=== PATIENT | male | born 1965 | race Caucasian/White ===

== ENCOUNTER 2017-08-21 14:10 | Inpatient (IN) | payer OTHER ==
[2017-08-21] MEDS ORDERED: Ondansetron 4 MG/2 ML SDV IVPUSH PRN (14:13)
[2017-08-21] MEDS ORDERED: Sodium Chloride 0.9% 2.5 ML Syringe FLUSH PRN (14:18)
[2017-08-21] MEDS ORDERED: Desflurane 240 ML Bottle ONE (14:43)
[2017-08-21] MEDS ORDERED: Ondansetron 4 MG/2 ML SDV ONE (14:48)
[2017-08-21] MEDS ORDERED: Midazolam 1 MG/ML 2 ML SDV ONE (14:48)
[2017-08-21] MEDS ORDERED: fentaNYL 250 MCG/5 ML SDV ONE (14:48)
[2017-08-21] MEDS ORDERED: Lidocaine 2% 5 ML SDV ONE (14:48)
[2017-08-21] MEDS ORDERED: Propofol 200 MG/20 ML SDV ONE (14:48)
[2017-08-21] MEDS ORDERED: Bupivacaine 0.5% 30 ML SDV ONE (14:55)
[2017-08-21] MEDS ORDERED: Lidocaine 1% 20 ML MDV ONE (14:55)
[2017-08-21] MEDS ORDERED: ceFAZolin 1 GM Vial ONE (14:55)
[2017-08-21 14:58] LABS: CHLORIDE,CL 102 mmol/L (98-110); SODIUM,NA 137 mmol/L (136-146)
--- NOTE | 2017-08-21 15:01 | PCM.PREANE ---
Preanesthetic Assessment - Anesthesia/Transfusion/Family Hx Anesthesia History: No Prior Anesthesia Family History of Anesthesia Reaction: No Transfusion History: No Prior Transfusion(s) - Review of Systems General: No Symptoms Pulmonary: No Symptoms Cardiovascular: Other (Pt does state he gets short of breath climbing a flight of stairs) Gastrointestinal: No Symptoms Neurological: No Symptoms Other: Reports: None - Physical Assessment NPO Status Date: 08/21/17 NPO Status Time: 06:30 ASA Class: 3E Mental Status: Alert & Oriented x3 Airway Class: Mallampati = 2 Dentition: Reports: Normal Dentition Thyro-Mental Finger Breadths: 3 Mouth Opening Finger Breadths: 4 ROM/Head Extension: Full Lungs: Clear to Auscultation, Normal Respiratory Effort Cardiovascular: Regular Rate, Regular Rhythm - Lab Values: Laboratory Last Values WBC 11.76 K/uL (4.0-11.0) H 08/21/17 14:24 RBC 4.97 M/uL (4.50-5.90) 08/21/17 14:24 Hgb 13.9 g/dL (13.0-17.0) 08/21/17 14:24 Hct 40.2 % (38.0-50.0) 08/21/17 14:24 MCV 80.9 fL (80.0-98.0) 08/21/17 14:24 MCH 28.0 pg (27.0-32.0) 08/21/17 14:24 MCHC 34.6 g/dL (31.0-37.0) 08/21/17 14:24 RDW Std Deviation 38.1 fl (28.0-62.0) 08/21/17 14:24 RDW Coeff of Analy 13 % (11.0-15.0) 08/21/17 14:24 Plt Count 211 K/uL (150-400) 08/21/17 14:24 MPV 9.60 fL (7.40-12.00) 08/21/17 14:24 Neut % (Auto) 74.8 % (48.0-80.0) 08/21/17 14:24 Lymph % (Auto) 11.6 % (16.0-40.0) L 08/21/17 14:24 Harlan % (Auto) 7.8 % (0.0-15.0) 08/21/17 14:24 Eos % (Auto) 5.4 % (0.0-7.0) 08/21/17 14:24 Baso % (Auto) 0.4 % (0.0-1.5) 08/21/17 14:24 Neut # (Auto) 8.8 K/uL (1.4-5.7) H 08/21/17 14:24 Lymph # (Auto) 1.4 K/uL (0.6-2.4) 08/21/17 14:24 Harlan # (Auto) 0.9 K/uL (0.0-0.8) H 08/21/17 14:24 Eos # (Auto) 0.6 K/uL (0.0-0.7) 08/21/17 14:24 Baso # (Auto) 0.1 K/uL (0.0-0.1) 08/21/17 14:24 Nucleated RBC % 0.0 /100WBC 08/21/17 14:24 Nucleated RBCs # 0 K/uL 08/21/17 14:24 INR 1.04 (0.86-1.11) 08/21/17 14:24 Hemoglobin A1c 11.1 % (0.0-6.0) H 08/21/17 14:26 - Blood Blood Available: No Product(s) Available: None - Anesthesia Plan Free Text/Narrative:: GA with LMA vs ET Awaiting CMP and EKG to still be completed - Acknowledgements Anesthesia Type Planned: General Anesthesia Pt an Appropriate Candidate for the Planned Anesthesia: Yes Alternatives and Risks of Anesthesia Discussed w Pt/Guardian: Yes Pt/Guardian Understands and Agrees with Anesthesia Plan: Yes PreAnesthesia Questionnaire Cardiovascular History: Reports: Hypertension, SOB on Exertion Gastrointestinal History: Reports: GERD (pt states occasionally with certain foods, but denies any problems currently) Endocrine/Metabolic History: Reports: Diabetes, Type II (states BG runs 250-350 and Hgb A1C=11.1) Dermatologic History: Reports: Other (See Below) (Diabetic Ulcer to L Foot) - SUBSTANCE USE Tobacco Use Within Last Twelve Months: No - CURRENT (IN HOUSE) MEDS Current Meds: Current Medications Piperacillin Sod/Tazobactam (Sod 4.5 gm/ Sodium Chloride) 100 mls @ 100 mls/hr IV Q6H LIANA Ondansetron HCl (Zofran) 4 mg IVPUSH Q4H PRN PRN Reason: Nausea Sodium Chloride (Saline Flush) 2.5 ml FLUSH ASDIRECTED PRN PRN Reason: Keep Vein Open Vancomycin HCl (Pharmacy To Dose - Vancomycin) 1 dose .XX ONETIME ONE Stop: 08/21/17 14:19 Discontinued Medications Desflurane (Suprane) Confirm Administered Dose 240 ml .ROUTE .STK-MED ONE Stop: 08/21/17 14:44 Fentanyl (Sublimaze) Confirm Administered Dose 250 mcg .ROUTE .STK-MED ONE Stop: 08/21/17 14:49 Lidocaine (Xylocaine-Mpf 2%) Confirm Administered Dose 5 ml .ROUTE .STK-MED ONE Stop: 08/21/17 14:49 Midazolam HCl (Versed 1 Mg/Ml) Confirm Administered Dose 2 mg .ROUTE .STK-MED ONE Stop: 08/21/17 14:49 Ondansetron HCl (Zofran) Confirm Administered Dose 4 mg .ROUTE .STK-MED ONE Stop: 08/21/17 14:49 Propofol (Diprivan 20 Ml) Confirm Administered Dose 200 mg .ROUTE .STK-MED ONE Stop: 08/21/17 14:49
[2017-08-21] MEDS: Piperacillin/Tazobactam 4.5 GM in Sodium Chloride 0.9% 100 ML IV SCH ×2 (15:03→20:44)
--- NOTE | 2017-08-21 15:11 | CR ---
EXAMINATION: Portable chest radiograph. HISTORY: Preoperative. FINDINGS: The trachea is midline. The cardiomediastinal silhouette is within normal limits. No pulmonary infilt rates, effusions or pneumothorax. Osseous structures appear unremarkable. IMPRESSION: No acute cardiopulmonary process.
--- NOTE | 2017-08-21 15:25 | PCM.HP ---
H&P History of Present Illness - General Date of Service: 08/21/17 Admit Problem/Dx: Admission Diagnosis/Problem Admission Diagnosis/Problem Diabetic foot ulcer Source of Information: Patient History Limitations: Reports: No Limitations - History of Present Illness Initial Comments - Free Text/Narative: This 52 year old male with pmh of uncontrolled DM, L diabetic foot ulcer, HTN and SOB on exertion was admitted directly from Dr. Gutierrez's clinic. He was recently admitted in [facility] for this ulcer, with fevers. He reports 8 months ago a blood blister wsa noted on the plantar surface of his l foot, this popped and healed slightly but never went away. He didn't seek treatment. 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 The blister popped and then the next day he noticed increased swelling, pain and fevers at home. He reports his normal blood sugars at 250-300s, he checks them maybe once a week. He has been diabetic for many years, started as diet controlled and has progressively needed more medication help and was recently started on Insulin from [employer] in [place]. He reports diet doesn't follow ADA standard. He has no hx of IL or stenting. No COPD or asthma. He does report some SOB with exertion such as walking up stairs. Leukocytosis noted, 11,760 on admission. BMP WNL except for glucose 267 and A1c 11.1. CXR negative for infiltrates and no cardiomegaly noted. EKG SR with no ectopy or ST segment changes. - Related Data Allergies/Adverse Reactions: Allergies Allergy/AdvReac Type Severity Reaction Status Date / Time No Known Allergies Allergy Verified 08/21/17 15:39 Past Medical History Cardiovascular History: Reports: Hypertension, SOB on Exertion. Denies: Afib, Blood Clots/VTE/DVT, CAD, Heart Failure, IL, Stents Respiratory History: Denies: Asthma, COPD, PE, Sleep Apnea Gastrointestinal History: Reports: GERD Genitourinary History: Reports: None. Denies: Acute Renal Failure, BPH, Chronic Renal Insuffiency Musculoskeletal History: Reports: None Neurological History: Reports: Neuropathy, Diabetic. Denies: CVA, Headaches, Chronic Endocrine/Metabolic History: Reports: Diabetes, Type II (states BG runs 250-350 and Hgb A1C=11.1), Obesity/BMI 30+ Hematologic History: Reports: None. Denies: Anticoagulation Therapy Dermatologic History: Reports: Other (See Below) (Diabetic Ulcer to L Foot) Social & Family History - Tobacco Use Smoking Status *Q: Never Smoker Tobacco Use Within Last Twelve Months: No - Alcohol Use Alcohol Use History: No - Recreational Drug Use Recreational Drug Use: No - Living Situation & Occupation Occupation: Employed H&P Review of Systems - Review of Systems: Review Of Systems: See Below General: Reports: Fever (during admission in [place], highest 102 F), Chills , Malaise HEENT: Reports: No Symptoms. Denies: Contact Lenses, Headaches, Sore Throat, Vertigo Pulmonary: Reports: No Symptoms. Denies: Shortness of Breath, Wheezing, Cough, Sputum Cardiovascular: Reports: No Symptoms. Denies: Chest Pain, Palpitations, Edema Gastrointestinal: Reports: No Symptoms. Denies: Abdominal Pain, Black Stool, Bloody Stool, Nausea, Vomiting Genitourinary: Reports: No Symptoms. Denies: Frequency, Burning Skin: Reports: Wound (L medial foot) Psychiatric: Reports: No Symptoms. Denies: Confusion Neurological: Reports: No Symptoms. Denies: Confusion Hematologic/Lymphatic: Reports: No Symptoms. Denies: Anemia, Easy Bleeding Exam - Exam Exam: See Below - Exam General: Alert, Oriented, Cooperative HEENT: Conjunctiva Clear, Mucosa Moist & [place], Posterior Pharynx Clear, Pupils Reactive Lungs: Clear to Auscultation, Normal Respiratory Effort Cardiovascular: Regular Rate, Regular Rhythm GI/Abdominal Exam: Normal Bowel Sounds, Soft, Non-Tender, No Organomegaly, No Distention, No Abnormal Bruit, No Mass, Pelvis Stable Back Exam: Normal Inspection, Full Range of Motion, NT Extremities: Normal Range of Motion, Pedal Edema (+1 pitting to L foot and ankle ), Increased Warmth Skin: Wound (noted medial to L MTP joint, approximately 8x8 cm with purulent drainage noted to open region with some noted necrotic tissue with surrounding maceration, erythema and warmth. No pain, foot is numb from neuropathy. ) Neuro Extensive - Mental Status: Alert, Oriented x3, Normal Mood/Affect, Normal Cognition Neuro Extensive - Motor, Sensory, Reflexes: CN II-XII Intact Psychiatric: Alert, Normal Affect, Normal Mood - Patient Data Lab Results Last 24 hrs: Laboratory Results - last 24 hr 08/21/17 08/21/17 08/21/17 Range/Units 14:24 14:24 14:24 WBC 11.76 H (4.0-11.0) K/uL RBC 4.97 (4.50-5.90) M/uL Hgb 13.9 (13.0-17.0) g/dL Hct 40.2 (38.0-50.0) % MCV 80.9 (80.0-98.0) fL MCH 28.0 (27.0-32.0) pg MCHC 34.6 (31.0-37.0) g/dL RDW Std Deviation 38.1 (28.0-62.0) fl RDW Coeff of Analy 13 (11.0-15.0) % Plt Count 211 (150-400) K/uL MPV 9.60 (7.40-12.00) fL Neut % (Auto) 74.8 (48.0-80.0) % Lymph % (Auto) 11.6 L (16.0-40.0) % [place] % (Auto) 7.8 (0.0-15.0) % Eos % (Auto) 5.4 (0.0-7.0) % Baso % (Auto) 0.4 (0.0-1.5) % Neut # (Auto) 8.8 H (1.4-5.7) K/uL Lymph # (Auto) 1.4 (0.6-2.4) K/uL [place] # (Auto) 0.9 H (0.0-0.8) K/uL Eos # (Auto) 0.6 (0.0-0.7) K/uL Baso # (Auto) 0.1 (0.0-0.1) K/uL Nucleated RBC % 0.0 /100WBC Nucleated RBCs # 0 K/uL INR 1.04 (0.86-1.11) Sodium 137 (136-146) mmol/L Potassium 4.4 (3.5-5.1) mmol/L Chloride 102 (98-110) mmol/L Carbon Dioxide 26 (21-31) mmol/L BUN 10 (6.0-23.0) mg/dL Creatinine 0.9 (0.6-1.5) mg/dL Est Cr Clr Drug Dosing TNP Estimated GFR (MDRD) > 60.0 ml/min Glucose 267 H (60-110) mg/dL Hemoglobin A1c (0.0-6.0) % Calcium 9.4 (8.8-10.8) mg/dL Total Bilirubin 0.7 (0.1-1.5) mg/dL AST 9 (5-40) IU/L ALT 9 (8-54) IU/L Alkaline Phosphatase 77 (40-150) Total Protein 6.7 (6.0-8.0) g/dL Albumin 3.8 (3.5-5.0) g/dL Globulin 2.9 (2.0-3.5) g/dL Albumin/Globulin Ratio 1.3 (1.3-2.8) 08/21/17 Range/Units 14:26 WBC (4.0-11.0) K/uL RBC (4.50-5.90) M/uL Hgb (13.0-17.0) g/dL Hct (38.0-50.0) % MCV (80.0-98.0) fL MCH (27.0-32.0) pg MCHC (31.0-37.0) g/dL RDW Std Deviation (28.0-62.0) fl RDW Coeff of Analy (11.0-15.0) % Plt Count (150-400) K/uL MPV (7.40-12.00) fL Neut % (Auto) (48.0-80.0) % Lymph % (Auto) (16.0-40.0) % [place] % (Auto) (0.0-15.0) % Eos % (Auto) (0.0-7.0) % Baso % (Auto) (0.0-1.5) % Neut # (Auto) (1.4-5.7) K/uL Lymph # (Auto) (0.6-2.4) K/uL [place] # (Auto) (0.0-0.8) K/uL Eos # (Auto) (0.0-0.7) K/uL Baso # (Auto) (0.0-0.1) K/uL Nucleated RBC % /100WBC Nucleated RBCs # K/uL INR (0.86-1.11) Sodium (136-146) mmol/L Potassium (3.5-5.1) mmol/L Chloride (98-110) mmol/L Carbon Dioxide (21-31) mmol/L BUN (6.0-23.0) mg/dL Creatinine (0.6-1.5) mg/dL Est Cr Clr Drug Dosing Estimated GFR (MDRD) ml/min Glucose (60-110) mg/dL Hemoglobin A1c 11.1 H (0.0-6.0) % Calcium (8.8-10.8) mg/dL Total Bilirubin (0.1-1.5) mg/dL AST (5-40) IU/L ALT (8-54) IU/L Alkaline Phosphatase (40-150) Total Protein (6.0-8.0) g/dL Albumin (3.5-5.0) g/dL Globulin (2.0-3.5) g/dL Albumin/Globulin Ratio (1.3-2.8) Result Diagrams: 08/21/17 14:24 08/21/17 14:24 EKG INTERPRETATION EKG Date: 08/21/17 Rhythm: NSR Bynum: Normal P-Wave: Present QRS: Normal ST-T: Normal QT: Normal *Q Meaningful Use (ADM) - VTE *Q VTE Criteria *Q: - Stroke *Q Stroke Criteria *Q: - AMI *Q AMI Criteria *Q: - Problem List (1) Diabetic foot ulcer SNOMED Code(s): 768516033 ICD Code: E11.621 - TYPE 2 DIABETES MELLITUS WITH FOOT ULCER; L97.509 - NON- PRESSURE CHRONIC ULCER OTH PRT UNSP FOOT W UNSP SEVERITY Status: Acute Current Visit: Yes Qualifiers: Diabetic foot ulcer location: midfoot Diabetes mellitus type: type 2 Laterality: left Non-pressure ulcer stage: with bone involvement without evidence of necrosis Qualified Code(s): E11.621 - Type 2 diabetes mellitus with foot ulcer; L97.426 - Non-pressure chronic ulcer of left heel and midfoot with bone involvement without evidence of necrosis; L97.426 - Non-pressure chronic ulcer of left heel and midfoot with bone involvement without evidence of necrosis (2) Uncontrolled type 2 diabetes mellitus with skin complication SNOMED Code(s): 72688423 ICD Code: E11.628 - TYPE 2 DIABETES MELLITUS WITH OTHER SKIN COMPLICATIONS; E11.65 - TYPE 2 DIABETES MELLITUS WITH HYPERGLYCEMIA Status: Acute Current Visit: Yes Qualifiers: Diabetes mellitus complication detail: with foot ulcer 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: with nursing home use Qualified Code(s): E11.621 - Type 2 diabetes mellitus with foot ulcer; E11.65 - Type 2 diabetes mellitus with hyperglycemia; E11.65 - Type 2 diabetes mellitus with hyperglycemia; E11.65 - Type 2 diabetes mellitus with hyperglycemia; E11.65 - Type 2 diabetes mellitus with hyperglycemia; L97.509 - Non-pressure chronic ulcer of other part of unspecified foot with unspecified severity; L97.509 - Non-pressure chronic ulcer of other part of unspecified foot with unspecified severity; L97.509 - Non -pressure chronic ulcer of other part of unspecified foot with unspecified severity; L97.509 - Non-pressure chronic ulcer of other part of unspecified foot with unspecified severity; Z79.4 - senior care (current) use of insulin; Z79.4 - senior care (current) use of insulin; Z79.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; Z79.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 (3) HTN (hypertension) SNOMED Code(s): 46961424 ICD Code: I10 - ESSENTIAL (PRIMARY) HYPERTENSION Status: Chronic Current Visit: Yes Qualifiers: Hypertension type: essential hypertension Qualified Code(s): I10 - Essential (primary) hypertension (4) Obesity (BMI 30-39.9) SNOMED Code(s): 398489646 ICD Code: E66.9 - OBESITY, UNSPECIFIED Status: Chronic Current Visit: Yes Problem List Initiated/Reviewed/Updated: Yes Orders Last 24hrs: Active Orders 24 hr Category Date Time Status Patient Status [ADT] Routine ADT 08/21/17 14:13 Active Intake and Output [RC] Q12H Care 08/21/17 14:15 Active Notify Provider Consults [RC] ASDIRECTED Care 08/21/17 14:16 Active VTE/DVT Education [RC] PER UNIT ROUTINE Care 08/21/17 14:13 Active Vital Signs [RC] Q4H Care 08/21/17 14:13 Active Consult to Physician [CONS] Routine Cons 08/21/17 14:13 Active Nothing per Oral Now Diet [DIET] Diet 08/21/17 Dinner Active CULTURE BLOOD [BC] Stat Lab 08/21/17 15:19 Ordered CULTURE BLOOD [BC] Stat Lab 08/21/17 15:19 Ordered VANCOMYCIN TROUGH [CHEM] Routine Lab 08/22/17 15:30 Ordered Ondansetron [Zofran] Med 08/21/17 14:13 Active 4 mg IVPUSH Q4H PRN Piperacillin/Tazobactam [Piperacil-Tazobact] 4.5 gm Med 08/21/17 14:30 Active Sodium Chloride 0.9% [Normal Saline] 100 ml IV Q6H Sodium Chloride 0.9% [Saline Flush] Med 08/21/17 14:18 Active 2.5 ml FLUSH ASDIRECTED PRN Vancomycin 2 gm Med 08/21/17 16:00 Active Sodium Chloride 0.9% [Normal Saline] 500 ml IV Q12H Blood Culture x2 Reflex Set [OM.PC] Stat Oth 08/21/17 15:18 Ordered Saline Lock Insert [OM.PC] Routine Oth 08/21/17 14:18 Ordered Resuscitation Status Routine Resus Stat 08/21/17 14:13 Ordered Medication Orders Piperacillin Sod/Tazobactam (Sod 4.5 gm/ Sodium Chloride) 100 mls @ 100 mls/hr IV Q6H LIANA Last Admin: 08/21/17 15:03 Dose: 100 mls/hr Vancomycin HCl 2 gm/ Sodium (Chloride) 500 mls @ 250 mls/hr IV Q12H LIANA Ondansetron HCl (Zofran) 4 mg IVPUSH Q4H PRN PRN Reason: Nausea Sodium Chloride (Saline Flush) 2.5 ml FLUSH ASDIRECTED PRN PRN Reason: Keep Vein Open Assessment/Plan Comment:: This 52 year old male admitted with suspected Osteomyelitis from infected L diabetic foot ulcer. 1. Suspected Osteomyelitis with infected L diabetic foot ulcer: Will obtain BC due to fevers. Vancomycin and Zosyn IV for now. Dr. Gutierrez to take to OR this evening. 2. DM type 2: Very uncontrolled. A1c 11.1 Needs reeducation on diet and medication regimen. Will consult DM educator. Hold Metformin. Novolog SSI with meals and Levemir at bedtime. 3. HTN: Continue Norvasc VTE prophylaxis: Will recommended post-operatively. Will speak with Dr. Gutierrez regarding safe starting point. DIspo: 3-5 days pending improvement
[2017-08-21] MEDS ORDERED: Vancomycin 2 GM in Sodium Chloride 0.9% 500 ML IV SCH (16:00)
[2017-08-21] MEDS ORDERED: Insulin Aspart 100 Units/ML 3 ML Pen SUBCUT STA (16:14)
[2017-08-21] MEDS ORDERED: Insulin Aspart 100 Units/ML 3 ML Pen SUBCUT SCH (17:00)
[2017-08-21] MEDS: Sodium Chloride 0.9% 1,000 ML IV SCH (17:09)
[2017-08-21] MEDS: Vancomycin 2 GM in Sodium Chloride 0.9% 500 ML IV SCH (17:09)
[2017-08-21] MEDS ORDERED: Phenylephrine/Normal Saline 100 MCG/ML 10 ML Syringe ONE (18:16)
[2017-08-21] MEDS ORDERED: fentaNYL 100 MCG/2 ML SDV IVPUSH PRN (18:17)
--- NOTE | 2017-08-21 19:02 | PCM.CONS ---
H&P History of Present Illness - General Date of Service: 08/21/17 Admit Problem/Dx: Admission Diagnosis/Problem Admission Diagnosis/Problem Diabetic foot ulcer Source of Information: Patient - History of Present Illness Onset of Symptoms: Reports: Gradual, Unknown/Unsure Duration of Symptoms: Reports: Chronic Location: Reports: Lower Extremity, Left Severity: Severe Associated Symptoms: Reports: Fever/Chills - Related Data Allergies/Adverse Reactions: Allergies Allergy/AdvReac Type Severity Reaction Status Date / Time No Known Allergies Allergy Verified 08/21/17 15:39 Home Medications: Home Meds amLODIPine [Norvasc] 10 mg PO DAILY 08/21/17 [History] metFORMIN [Glucophage XR] 1,000 mg PO BIDMEALS 08/21/17 [History] Past Medical History HEENT History: Reports: Other (See Below) Other HEENT History: uses reading glasses Cardiovascular History: Reports: Hypertension, SOB on Exertion. Denies: Afib, Blood Clots/VTE/DVT, CAD, Heart Failure, [place], Stents Respiratory History: Denies: Asthma, COPD, PE, Sleep Apnea Gastrointestinal History: Reports: GERD Genitourinary History: Reports: None. Denies: Acute Renal Failure, BPH, Chronic Renal Insuffiency Musculoskeletal History: Reports: None Neurological History: Reports: Neuropathy, Diabetic. Denies: CVA, Headaches, Chronic Endocrine/Metabolic History: Reports: Diabetes, Type II (states BG runs 250-350 and Hgb A1C=11.1), Obesity/BMI 30+ Hematologic History: Reports: None. Denies: Anticoagulation Therapy Dermatologic History: Reports: Other (See Below) (Diabetic Ulcer to L Foot) Other Dermatologic History: diabetic foot ulcer to left big toe - Infectious Disease History Infectious Disease History: Reports: Chicken Pox - Past Surgical History Musculoskeletal Surgical History: Reports: None Social & Family History - Family History Family Medical History: Noncontributory - Tobacco Use Smoking Status *Q: Never Smoker Second Hand Smoke Exposure: Yes - Caffeine Use Caffeine Use: Reports: Coffee - Recreational Drug Use Recreational Drug Use: No - Living Situation & Occupation Occupation: Employed H&P Review of Systems - Review of Systems: Review Of Systems: See Below Exam - Exam Exam: See Below - Vital Signs Vital Signs: Last Vital Signs Temp 37.2 C 08/21/17 17:30 Pulse 83 08/21/17 17:30 Resp 16 08/21/17 17:30 BP 166/78 H 08/21/17 17:30 Pulse Ox 95 08/21/17 17:30 Weight: 122.515 kg - Exam Peripheral Pulses: 0: Posterior Tibial (L), Dorsalis Pedis (L), 1+: Posterior Tibial (R), Dorsalis Pedis (R) Physical Exam Comments:: in the office earlier today, I was able to probe a tunnel from the medial ulcer to the plantar ulcer patient has quite severe cellulitis of the left foot related to the ulcer which is borderline stage 4 on the dorsomedial aspect of the first metatarsal and probes oblquely to the plantar, sub first metatarsal head area. - Patient Data Lab Results Last 24 hrs: Laboratory Results - last 24 hr 08/21/17 08/21/17 08/21/17 Range/Units 14:24 14:24 14:24 WBC 11.76 H (4.0-11.0) K/uL RBC 4.97 (4.50-5.90) M/uL Hgb 13.9 (13.0-17.0) g/dL Hct 40.2 (38.0-50.0) % MCV 80.9 (80.0-98.0) fL MCH 28.0 (27.0-32.0) pg MCHC 34.6 (31.0-37.0) g/dL RDW Std Deviation 38.1 (28.0-62.0) fl RDW Coeff of Analy 13 (11.0-15.0) % Plt Count 211 (150-400) K/uL MPV 9.60 (7.40-12.00) fL Neut % (Auto) 74.8 (48.0-80.0) % Lymph % (Auto) 11.6 L (16.0-40.0) % [place] % (Auto) 7.8 (0.0-15.0) % Eos % (Auto) 5.4 (0.0-7.0) % Baso % (Auto) 0.4 (0.0-1.5) % Neut # (Auto) 8.8 H (1.4-5.7) K/uL Lymph # (Auto) 1.4 (0.6-2.4) K/uL Stanley # (Auto) 0.9 H (0.0-0.8) K/uL Eos # (Auto) 0.6 (0.0-0.7) K/uL Baso # (Auto) 0.1 (0.0-0.1) K/uL Nucleated RBC % 0.0 /100WBC Nucleated RBCs # 0 K/uL INR 1.04 (0.86-1.11) Sodium 137 (136-146) mmol/L Potassium 4.4 (3.5-5.1) mmol/L Chloride 102 (98-110) mmol/L Carbon Dioxide 26 (21-31) mmol/L BUN 10 (6.0-23.0) mg/dL Creatinine 0.9 (0.6-1.5) mg/dL Est Cr Clr Drug Dosing TNP Estimated GFR (MDRD) > 60.0 ml/min Glucose 267 H (60-110) mg/dL POC Glucose (60-110) mg/dL Hemoglobin A1c (0.0-6.0) % Calcium 9.4 (8.8-10.8) mg/dL Total Bilirubin 0.7 (0.1-1.5) mg/dL AST 9 (5-40) IU/L ALT 9 (8-54) IU/L Alkaline Phosphatase 77 (40-150) Total Protein 6.7 (6.0-8.0) g/dL Albumin 3.8 (3.5-5.0) g/dL Globulin 2.9 (2.0-3.5) g/dL Albumin/Globulin Ratio 1.3 (1.3-2.8) 08/21/17 08/21/17 Range/Units 14:26 15:52 WBC (4.0-11.0) K/uL RBC (4.50-5.90) M/uL Hgb (13.0-17.0) g/dL Hct (38.0-50.0) % MCV (80.0-98.0) fL MCH (27.0-32.0) pg MCHC (31.0-37.0) g/dL RDW Std Deviation (28.0-62.0) fl RDW Coeff of Analy (11.0-15.0) % Plt Count (150-400) K/uL MPV (7.40-12.00) fL Neut % (Auto) (48.0-80.0) % Lymph % (Auto) (16.0-40.0) % [place] % (Auto) (0.0-15.0) % Eos % (Auto) (0.0-7.0) % Baso % (Auto) (0.0-1.5) % Neut # (Auto) (1.4-5.7) K/uL Lymph # (Auto) (0.6-2.4) K/uL Stanley # (Auto) (0.0-0.8) K/uL Eos # (Auto) (0.0-0.7) K/uL Baso # (Auto) (0.0-0.1) K/uL Nucleated RBC % /100WBC Nucleated RBCs # K/uL INR (0.86-1.11) Sodium (136-146) mmol/L Potassium (3.5-5.1) mmol/L Chloride (98-110) mmol/L Carbon Dioxide (21-31) mmol/L BUN (6.0-23.0) mg/dL Creatinine (0.6-1.5) mg/dL Est Cr Clr Drug Dosing Estimated GFR (MDRD) ml/min Glucose (60-110) mg/dL POC Glucose 226 H (60-110) mg/dL Hemoglobin A1c 11.1 H (0.0-6.0) % Calcium (8.8-10.8) mg/dL Total Bilirubin (0.1-1.5) mg/dL AST (5-40) IU/L ALT (8-54) IU/L Alkaline Phosphatase (40-150) Total Protein (6.0-8.0) g/dL Albumin (3.5-5.0) g/dL Globulin (2.0-3.5) g/dL Albumin/Globulin Ratio (1.3-2.8) Result Diagrams: 08/21/17 14:24 08/21/17 14:24 Consult PN Assessment/Plan (1) Diabetic foot ulcer SNOMED Code(s): 457986289 Code(s): E11.621 - TYPE 2 DIABETES MELLITUS WITH FOOT ULCER; L97.509 - NON- PRESSURE CHRONIC ULCER OTH PRT UNSP FOOT W UNSP SEVERITY Current Visit: Yes Qualifiers: Diabetic foot ulcer location: midfoot Diabetes mellitus type: type 2 Laterality: left Non-pressure ulcer stage: with bone involvement without evidence of necrosis Qualified Code(s): E11.621 - Type 2 diabetes mellitus with foot ulcer; L97.426 - Non-pressure chronic ulcer of left heel and midfoot with bone involvement without evidence of necrosis; L97.426 - Non-pressure chronic ulcer of left heel and midfoot with bone involvement without evidence of necrosis Problem List Initiated/Reviewed/Updated: Yes My Orders Last 24 Hours: My Active Orders 08/21/17 18:24 CULTURE ANAEROBIC [RM] Routine GRAM STAIN [RM] Routine 08/21/17 18:26 CULTURE WOUND [RM] Routine Plan: proceed with emergent incision and drainage tonight in OR, then maintain IV abx pending improvement in cellulitis and culture results (culture being taken in OR )
--- NOTE | 2017-08-21 19:15 | PCM.OPNOTE ---
- General Post-Op/Procedure Note Date of Surgery/Procedure: 08/21/17 Operative Procedure(s): incision and drainage with debridement left foot diabetic ulcer Findings: consistent with diagnosis Pre Op Diagnosis: diabetic foot ulcer left foot Post-Op Diagnosis: diabetic foot ulcer left foot Anesthesia Technique: General LMA Primary Surgeon: Wilmer Gutierrez Anesthesia Provider: Mimi Horvath Pathology: none EBL in mLs: 40 Complications: none Condition: Good Free Text/Narrative:: Intake & Output 08/21/17 08/21/17 08/21/17 06:59 14:59 22:59 Intake Total 550 Output Total 500 Balance 50 incisions partially closed with 4-0 vicryl and 4-0 prolene suture 3 liters of NSS pulse lavage utilized to flush ulcer site
--- NOTE | 2017-08-21 19:16 | PCM.POSTAN ---
POST ANESTHESIA ASSESSMENT - MENTAL STATUS Mental Status: Alert, Oriented - VITAL SIGNS Pulse Rate: 94 SaO2: 92 Resp Rate: 13 - RESPIRATORY Respiratory Status: Respiratory Rate WNL, Airway Patent, O2 Saturation Stable, Supplemental Oxygen - CARDIOVASCULAR CV Status: Pulse Rate WNL, Blood Pressure Stable - GASTROINTESTINAL GI Status: No Symptoms - PAIN Pain Score: 0 - POST OP HYDRATION Hydration Status: Adequate & Stable - OBSERVATIONS Free Text/Narrative:: Pt stable for discharge to phase II recovery on Med/Surg. No complaints at this time.
--- NOTE | 2017-08-21 19:31 | PCM48HPAN ---
Post Anesthesia Note - EVALUATION WITHIN 48HRS OF ANESTHETIC Vital Signs in Normal Range: Yes Patient Participated in Evaluation: Yes Respiratory Function Stable: Yes Airway Patent: Yes Cardiovascular Function Stable: Yes Hydration Status Stable: Yes Pain Control Satisfactory: Yes Nausea and Vomiting Control Satisfactory: Yes Mental Status Recovered: Yes - COMMENTS/OBSERVATIONS Free Text/Narrative:: Pt has no complaints. VSS. No apparent anesthesia complications.
[2017-08-21] MEDS ORDERED: Insulin Detemir 100 Units/ML 3 ML Pen SUBCUT SCH (21:00)
--- NOTE | 2017-08-21 23:14 | OR ---
SURGEON: Wilmer Gutierrez DPM DATE OF PROCEDURE: 08/21/2017 PREOPERATIVE DIAGNOSIS: Diabetic ulcer, left foot. PROCEDURE: Incision and drainage with debridement as necessary of diabetic ulcer, left foot. CONSENT: Signed and in the chart. ANESTHESIA: General. HEMOSTASIS: An above ankle pneumatic tourniquet was placed, however, it was not inflated as it was deemed to be unnecessary during the procedure. MATERIALS: 4-0 Vicryl, 4-0 Prolene. INJECTABLES: None. PATHOLOGY: None. JUSTIFICATION FOR PROCEDURE: The patient is an uncontrolled diabetic who was admitted to [facility] in [place], [place], 2 days ago and I was consulted by phone regarding this patient yesterday and agreed to see the patient in my office following an MRI that was scheduled for him. Upon seeing the patient today in my office, I informed the patient that a significant incision and drainage of his left foot is necessary as he has an ulcer which probes either to bone or very close to bone and probes from one ulcer site to another within the left foot. The patient understands and agrees to proceed to [facility]. I contacted Dr. Schultz, the hospitalist and he agreed to admit the patient, and I then scheduled operative room treatment for this evening. DESCRIPTION OF PROCEDURE: The patient was brought into the operating room, placed on the operating table in a supine position, at which time an aseptic scrub and drape was performed about the patient's left lower extremity. An above ankle pneumatic tourniquet was placed above the malleoli on the left lower extremity; however, it was not utilized as it was not necessary during the procedure. An incision was made over the dorsal medial ulcer site and extended to allow for probing for pockets of purulence. The same was done on the plantar ulcer. [place] elevator was used to probe the tunnel between the two ulcers. The ulcers were located on the dorsal medial aspect of the first metatarsal head and metatarsophalangeal joint of the left foot and probed obliquely and plantarly to the plantar sub-first metatarsal head area of the left foot. The wound was debrided of all necrotic tissue and exsanguinated using manual pressure, and a small amount of purulence was noted to come from the ulcers. At that point, pulse lavage was used intermittently throughout the procedure to flush and then reexamine the site and further exsanguinate until no purulence was noted with repeated exsanguination. Further pulse lavage was then done completing a total of 3 L of normal sterile saline pulse lavage. Cultures were taken at the conclusion of the procedure, and the patient will be readmitted to his room and continue with his IV antibiotics, both vancomycin and Zosyn. I will follow the patient while in-house. Anticipate the patient will be in-house a minimum of two days, possibly longer pending resolution of his left lower extremity cellulitis and better control of his blood sugar. The patient tolerated the procedure and the anesthesia well without any complications noted or reported, and following the procedure, he was transported to the recovery room and will be transported back to his room in the facility once he is deemed stable and ready to proceed. SERAFIN SUERO /[id number]
[2017-08-22] MEDS: Piperacillin/Tazobactam 4.5 GM in Sodium Chloride 0.9% 100 ML IV SCH ×4 (02:38→19:55)
[2017-08-22] MEDS: Vancomycin 2 GM in Sodium Chloride 0.9% 500 ML IV SCH ×2 (04:26→18:04)
[2017-08-22 05:50] LABS: CHLORIDE,CL 107 mmol/L (98-110); SODIUM,NA 140 mmol/L (136-146)
[2017-08-22] MEDS: Insulin Aspart 100 Units/ML 3 ML Pen SUBCUT SCH ×4 (06:42→17:31)
[2017-08-22] MEDS: amLODIPine 5 MG Tab PO SCH (08:24)
--- NOTE | 2017-08-22 09:15 | PCM.PN ---
- General Info Date of Service: 08/22/17 Admission Dx/Problem (Free Text): Admission Diagnosis/Problem Admission Diagnosis/Problem Diabetic foot ulcer Subjective Update: Doing well this morning. Having no pain to foot. No chest pain or SOB. No concerns over night. Functional Status: Reports: Pain Controlled, Tolerating Diet, Urinating - Review of Systems General: Reports: No Symptoms. Denies: Fever HEENT: Reports: No Symptoms. Denies: Headaches, Sore Throat, Visual Changes Pulmonary: Reports: No Symptoms. Denies: Shortness of Breath, Cough, Sputum Cardiovascular: Reports: No Symptoms. Denies: Chest Pain, Dyspnea on Exertion, Edema Gastrointestinal: Reports: No Symptoms. Denies: Abdominal Pain, Nausea, Vomiting Musculoskeletal: Reports: No Symptoms Psychiatric: Reports: No Symptoms. Denies: Confusion - Patient Data Vitals - Most Recent: Last Vital Signs Temp 97.6 F 08/22/17 07:45 Pulse 82 08/22/17 07:45 Resp 22 H 08/22/17 07:45 BP 154/73 H 08/22/17 08:24 Pulse Ox 95 08/22/17 07:45 Weight - Most Recent: 122.515 kg I&O - Last 24 Hours: Intake & Output 08/21/17 08/22/17 08/22/17 22:59 06:59 14:59 Intake Total 1750 2100 Output Total 500 2700 Balance 1250 -600 Lab Results Last 24 Hours: Laboratory Results - last 24 hr 08/21/17 08/21/17 08/21/17 Range/Units 14:24 14:24 14:24 WBC 11.76 H (4.0-11.0) K/uL RBC 4.97 (4.50-5.90) M/uL Hgb 13.9 (13.0-17.0) g/dL Hct 40.2 (38.0-50.0) % MCV 80.9 (80.0-98.0) fL MCH 28.0 (27.0-32.0) pg MCHC 34.6 (31.0-37.0) g/dL RDW Std Deviation 38.1 (28.0-62.0) fl RDW Coeff of Analy 13 (11.0-15.0) % Plt Count 211 (150-400) K/uL MPV 9.60 (7.40-12.00) fL Neut % (Auto) 74.8 (48.0-80.0) % Lymph % (Auto) 11.6 L (16.0-40.0) % [place] % (Auto) 7.8 (0.0-15.0) % Eos % (Auto) 5.4 (0.0-7.0) % Baso % (Auto) 0.4 (0.0-1.5) % Neut # (Auto) 8.8 H (1.4-5.7) K/uL Lymph # (Auto) 1.4 (0.6-2.4) K/uL Bill[place] # (Auto) 0.9 H (0.0-0.8) K/uL Eos # (Auto) 0.6 (0.0-0.7) K/uL Baso # (Auto) 0.1 (0.0-0.1) K/uL Nucleated RBC % 0.0 /100WBC Nucleated RBCs # 0 K/uL INR 1.04 (0.86-1.11) Sodium 137 (136-146) mmol/L Potassium 4.4 (3.5-5.1) mmol/L Chloride 102 (98-110) mmol/L Carbon Dioxide 26 (21-31) mmol/L BUN 10 (6.0-23.0) mg/dL Creatinine 0.9 (0.6-1.5) mg/dL Est Cr Clr Drug Dosing TNP Estimated GFR (MDRD) > 60.0 ml/min Glucose 267 H (60-110) mg/dL POC Glucose (60-110) mg/dL Hemoglobin A1c (0.0-6.0) % Calcium 9.4 (8.8-10.8) mg/dL Total Bilirubin 0.7 (0.1-1.5) mg/dL AST 9 (5-40) IU/L ALT 9 (8-54) IU/L Alkaline Phosphatase 77 (40-150) Total Protein 6.7 (6.0-8.0) g/dL Albumin 3.8 (3.5-5.0) g/dL Globulin 2.9 (2.0-3.5) g/dL Albumin/Globulin Ratio 1.3 (1.3-2.8) 08/21/17 08/21/17 08/21/17 Range/Units 14:26 15:52 17:39 WBC (4.0-11.0) K/uL RBC (4.50-5.90) M/uL Hgb (13.0-17.0) g/dL Hct (38.0-50.0) % MCV (80.0-98.0) fL MCH (27.0-32.0) pg MCHC (31.0-37.0) g/dL RDW Std Deviation (28.0-62.0) fl RDW Coeff of Analy (11.0-15.0) % Plt Count (150-400) K/uL MPV (7.40-12.00) fL Neut % (Auto) (48.0-80.0) % Lymph % (Auto) (16.0-40.0) % Bill[place] % (Auto) (0.0-15.0) % Eos % (Auto) (0.0-7.0) % Baso % (Auto) (0.0-1.5) % Neut # (Auto) (1.4-5.7) K/uL Lymph # (Auto) (0.6-2.4) K/uL Bill[place] # (Auto) (0.0-0.8) K/uL Eos # (Auto) (0.0-0.7) K/uL Baso # (Auto) (0.0-0.1) K/uL Nucleated RBC % /100WBC Nucleated RBCs # K/uL INR (0.86-1.11) Sodium (136-146) mmol/L Potassium (3.5-5.1) mmol/L Chloride (98-110) mmol/L Carbon Dioxide (21-31) mmol/L BUN (6.0-23.0) mg/dL Creatinine (0.6-1.5) mg/dL Est Cr Clr Drug Dosing Estimated GFR (MDRD) ml/min Glucose (60-110) mg/dL POC Glucose 226 H 204 H (60-110) mg/dL Hemoglobin A1c 11.1 H (0.0-6.0) % Calcium (8.8-10.8) mg/dL Total Bilirubin (0.1-1.5) mg/dL AST (5-40) IU/L ALT (8-54) IU/L Alkaline Phosphatase (40-150) Total Protein (6.0-8.0) g/dL Albumin (3.5-5.0) g/dL Globulin (2.0-3.5) g/dL Albumin/Globulin Ratio (1.3-2.8) 08/21/17 08/22/17 08/22/17 Range/Units 21:00 05:12 05:12 WBC 10.35 (4.0-11.0) K/uL RBC 4.43 L (4.50-5.90) M/uL Hgb 12.3 L (13.0-17.0) g/dL Hct 36.0 L (38.0-50.0) % MCV 81.3 (80.0-98.0) fL MCH 27.8 (27.0-32.0) pg MCHC 34.2 (31.0-37.0) g/dL RDW Std Deviation 38.1 (28.0-62.0) fl RDW Coeff of Analy 13 (11.0-15.0) % Plt Count 175 (150-400) K/uL MPV 9.70 (7.40-12.00) fL Neut % (Auto) 73.6 (48.0-80.0) % Lymph % (Auto) 12.7 L (16.0-40.0) % [place] % (Auto) 7.6 (0.0-15.0) % Eos % (Auto) 5.5 (0.0-7.0) % Baso % (Auto) 0.6 (0.0-1.5) % Neut # (Auto) 7.6 H (1.4-5.7) K/uL Lymph # (Auto) 1.3 (0.6-2.4) K/uL [place] # (Auto) 0.8 (0.0-0.8) K/uL Eos # (Auto) 0.6 (0.0-0.7) K/uL Baso # (Auto) 0.1 (0.0-0.1) K/uL Nucleated RBC % 0.0 /100WBC Nucleated RBCs # 0 K/uL INR (0.86-1.11) Sodium 140 (136-146) mmol/L Potassium 3.8 (3.5-5.1) mmol/L Chloride 107 (98-110) mmol/L Carbon Dioxide 24 (21-31) mmol/L BUN 9 (6.0-23.0) mg/dL Creatinine 1.0 (0.6-1.5) mg/dL Est Cr Clr Drug Dosing 90.99 Estimated GFR (MDRD) > 60.0 ml/min Glucose 204 H (60-110) mg/dL POC Glucose 167 H (60-110) mg/dL Hemoglobin A1c (0.0-6.0) % Calcium 8.1 L (8.8-10.8) mg/dL Total Bilirubin (0.1-1.5) mg/dL AST (5-40) IU/L ALT (8-54) IU/L Alkaline Phosphatase (40-150) Total Protein (6.0-8.0) g/dL Albumin (3.5-5.0) g/dL Globulin (2.0-3.5) g/dL Albumin/Globulin Ratio (1.3-2.8) 08/22/17 Range/Units 06:22 WBC (4.0-11.0) K/uL RBC (4.50-5.90) M/uL Hgb (13.0-17.0) g/dL Hct (38.0-50.0) % MCV (80.0-98.0) fL MCH (27.0-32.0) pg MCHC (31.0-37.0) g/dL RDW Std Deviation (28.0-62.0) fl RDW Coeff of Analy (11.0-15.0) % Plt Count (150-400) K/uL MPV (7.40-12.00) fL Neut % (Auto) (48.0-80.0) % Lymph % (Auto) (16.0-40.0) % [place] % (Auto) (0.0-15.0) % Eos % (Auto) (0.0-7.0) % Baso % (Auto) (0.0-1.5) % Neut # (Auto) (1.4-5.7) K/uL Lymph # (Auto) (0.6-2.4) K/uL [place] # (Auto) (0.0-0.8) K/uL Eos # (Auto) (0.0-0.7) K/uL Baso # (Auto) (0.0-0.1) K/uL Nucleated RBC % /100WBC Nucleated RBCs # K/uL INR (0.86-1.11) Sodium (136-146) mmol/L Potassium (3.5-5.1) mmol/L Chloride (98-110) mmol/L Carbon Dioxide (21-31) mmol/L BUN (6.0-23.0) mg/dL Creatinine (0.6-1.5) mg/dL Est Cr Clr Drug Dosing Estimated GFR (MDRD) ml/min Glucose (60-110) mg/dL POC Glucose 175 H (60-110) mg/dL Hemoglobin A1c (0.0-6.0) % Calcium (8.8-10.8) mg/dL Total Bilirubin (0.1-1.5) mg/dL AST (5-40) IU/L ALT (8-54) IU/L Alkaline Phosphatase (40-150) Total Protein (6.0-8.0) g/dL Albumin (3.5-5.0) g/dL Globulin (2.0-3.5) g/dL Albumin/Globulin Ratio (1.3-2.8) Jered Results Last 24 Hours: Microbiology 08/21/17 18:24 Gram Stain - Preliminary Foot, Left Med Orders - Current: Current Medications Amlodipine Besylate (Norvasc) 10 mg PO DAILY [facility] Last Admin: 08/22/17 08:24 Dose: 10 mg Fentanyl (Sublimaze) 50 mcg IVPUSH .Q5MIN PRN PRN Reason: Pain Piperacillin Sod/Tazobactam (Sod 4.5 gm/ Sodium Chloride) 100 mls @ 100 mls/hr IV Q6H [facility] Last Admin: 08/22/17 08:21 Dose: 100 mls/hr Sodium Chloride (Normal Saline) 1,000 mls @ 100 mls/hr IV ASDIRECTED [facility] Last Admin: 08/21/17 17:09 Dose: 100 mls/hr Vancomycin HCl 2 gm/ Sodium (Chloride) 500 mls @ 250 mls/hr IV Q12H [facility] Last Admin: 08/22/17 04:26 Dose: 250 mls/hr Insulin Aspart (Novolog) 0 unit SUBCUT TIDAC [facility] PRN Reason: Protocol Last Admin: 08/22/17 06:45 Dose: Not Given Insulin Detemir (Levemir) 15 unit SUBCUT BEDTIME [facility] Last Admin: 08/21/17 21:03 Dose: 15 units Ondansetron HCl (Zofran) 4 mg IVPUSH Q4H PRN PRN Reason: Nausea Sodium Chloride (Saline Flush) 2.5 ml FLUSH ASDIRECTED PRN PRN Reason: Keep Vein Open Discontinued Medications Bupivacaine HCl (Marcaine 0.5%) Confirm Administered Dose 30 ml .ROUTE .STK-MED ONE Stop: 08/21/17 14:56 Cefazolin Sodium (Ancef) Confirm Administered Dose 1 gm .ROUTE .STK-MED ONE Stop: 08/21/17 14:56 Desflurane (Suprane) Confirm Administered Dose 240 ml .ROUTE .STK-MED ONE Stop: 08/21/17 14:44 Fentanyl (Sublimaze) Confirm Administered Dose 250 mcg .ROUTE .STK-MED ONE Stop: 08/21/17 14:49 Vancomycin HCl 2 gm/ Sodium (Chloride) 500 mls @ 250 mls/hr IV Q12H [facility] Last Admin: 08/21/17 17:17 Dose: Not Given Insulin Aspart (Novolog) 0 unit SUBCUT TIDAC [facility] PRN Reason: Protocol Insulin Aspart (Novolog) 3 unit SUBCUT NOW STA Stop: 08/21/17 16:15 Last Admin: 08/21/17 17:08 Dose: 3 unit Lidocaine (Xylocaine-Mpf 2%) Confirm Administered Dose 5 ml .ROUTE .STK-MED ONE Stop: 08/21/17 14:49 Lidocaine HCl (Xylocaine 1%) Confirm Administered Dose 20 ml .ROUTE .STK-MED ONE Stop: 08/21/17 14:56 Midazolam HCl (Versed 1 Mg/Ml) Confirm Administered Dose 2 mg .ROUTE .STK-MED ONE Stop: 08/21/17 14:49 Ondansetron HCl (Zofran) Confirm Administered Dose 4 mg .ROUTE .STK-MED ONE Stop: 08/21/17 14:49 Phenylephrine HCl (Phenylephrine In Ns 100 Mcg/Ml) Confirm Administered Dose 1 mg .ROUTE .STK-MED ONE Stop: 08/21/17 18:17 Propofol (Diprivan 20 Ml) Confirm Administered Dose 200 mg .ROUTE .STK-MED ONE Stop: 08/21/17 14:49 Vancomycin HCl (Pharmacy To Dose - Vancomycin) 1 dose .XX ONETIME ONE Stop: 08/21/17 14:19 Last Admin: 08/21/17 17:18 Dose: Not Given - Exam General: Alert, Oriented, Cooperative Lungs: Clear to Auscultation, Normal Respiratory Effort Cardiovascular: Regular Rate, Regular Rhythm GI/Abdominal Exam: Normal Bowel Sounds, Soft, Non-Tender, No Organomegaly, No Distention, No Abnormal Bruit, No Mass, Pelvis Stable Extremities: Normal Range of Motion, Pedal Edema (L foot, +1) Wound/Incisions: Dressing Dry and Intact (Post-operative dressing intact, will not take down until seen by Dr Gutierrez. ), Other (callous noted to R planter surface as well, no erythema drainage and blanching well. ) Neurological: No New Focal Deficit Psy/Mental Status: Alert, Normal Affect, Normal Mood - Problem List & Annotations (1) Diabetic foot ulcer SNOMED Code(s): 704268919 Code(s): E11.621 - TYPE 2 DIABETES MELLITUS WITH FOOT ULCER; L97.509 - NON- PRESSURE CHRONIC ULCER OTH PRT UNSP FOOT W UNSP SEVERITY Status: Acute Current Visit: Yes Qualifiers: Diabetic foot ulcer location: midfoot Diabetes mellitus type: type 2 Laterality: left Non-pressure ulcer stage: with bone involvement without evidence of necrosis Qualified Code(s): E11.621 - Type 2 diabetes mellitus with foot ulcer; L97.426 - Non-pressure chronic ulcer of left heel and midfoot with bone involvement without evidence of necrosis; L97.426 - Non-pressure chronic ulcer of left heel and midfoot with bone involvement without evidence of necrosis (2) Uncontrolled type 2 diabetes mellitus with skin complication SNOMED Code(s): 03998167 Code(s): E11.628 - TYPE 2 DIABETES MELLITUS WITH OTHER SKIN COMPLICATIONS; E11.65 - TYPE 2 DIABETES MELLITUS WITH HYPERGLYCEMIA Status: Acute Current Visit: Yes Qualifiers: Diabetes mellitus complication detail: with foot ulcer Diabetes mellitus senior care insulin use: with intermediate frame tender use Qualified Code(s): E11.621 - Type 2 diabetes mellitus with foot ulcer; E11.65 - Type 2 diabetes mellitus with hyperglycemia; 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; 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; 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; E11.65 - Type 2 diabetes mellitus with hyperglycemia; E11.65 - Type 2 diabetes mellitus with hyperglycemia; E11.65 - Type 2 diabetes mellitus with hyperglycemia; L97.509 - Non-pressure chronic ulcer of other part of unspecified foot with unspecified severity; L97.509 - Non-pressure chronic ulcer of other part of unspecified foot with unspecified severity; L97.509 - Non-pressure chronic ulcer of other part of unspecified foot with unspecified severity; L97.509 - Non -pressure chronic ulcer of other part of unspecified foot with unspecified severity; Z79.4 - [facility] (current) use of insulin (3) HTN (hypertension) SNOMED Code(s): 72636757 Code(s): I10 - ESSENTIAL (PRIMARY) HYPERTENSION Status: Chronic Current Visit: Yes Qualifiers: Hypertension type: essential hypertension Qualified Code(s): I10 - Essential (primary) hypertension (4) Obesity (BMI 30-39.9) SNOMED Code(s): 782157236 Code(s): E66.9 - OBESITY, UNSPECIFIED Status: Chronic Current Visit: Yes - Problem List Review Problem List Initiated/Reviewed/Updated: Yes - My Orders Last 24 Hours: My Active Orders 08/21/17 14:13 Patient Status [ADT] Routine Vital Signs [RC] Q4H Consult to Physician [CONS] Routine Ondansetron [Zofran] 4 mg IVPUSH Q4H PRN Resuscitation Status Routine 08/21/17 14:15 Intake and Output [RC] Q12H 08/21/17 14:16 Notify Provider Consults [RC] ASDIRECTED 08/21/17 14:18 Sodium Chloride 0.9% [Saline Flush] 2.5 ml FLUSH ASDIRECTED PRN Saline Lock Insert [OM.PC] Routine 08/21/17 14:30 Piperacillin/Tazobactam [Piperacil-Tazobact] 4.5 gm Sodium Chloride 0.9% [ Normal Saline] 100 ml IV Q6H 08/21/17 15:18 Blood Culture x2 Reflex Set [OM.PC] Stat 08/21/17 15:35 CULTURE BLOOD [BC] Stat 08/21/17 15:44 Blood Glucose Check, Bedside [RC] TIDA 08/21/17 15:45 CULTURE BLOOD [BC] Stat Sodium Chloride 0.9% [Normal Saline] 1,000 ml IV ASDIRECTED 08/21/17 17:00 Vancomycin 2 gm Sodium Chloride 0.9% [Normal Saline] 500 ml IV Q12H 08/21/17 21:00 Insulin Detemir [Levemir] 15 unit SUBCUT BEDTIME 08/22/17 07:00 Insulin Aspart [NovoLOG] See Protocol SUBCUT TIDA 08/22/17 08:04 Consult to Fusion Analyst [Consult to Diabetic Nurse Specialist] [CONS] Routine 08/22/17 09:00 amLODIPine [Norvasc] 10 mg PO DAILY 08/23/17 05:00 BMP [BASIC METABOLIC PANEL,BMP] [CHEM] DAILY CBC WITH AUTO DIFF [HEME] DAILY 08/24/17 05:00 BMP [BASIC METABOLIC PANEL,BMP] [CHEM] DAILY CBC WITH AUTO DIFF [HEME] DAILY 08/25/17 05:00 BMP [BASIC METABOLIC PANEL,BMP] [CHEM] DAILY CBC WITH AUTO DIFF [HEME] DAILY - Plan Plan:: This 52 year old male admitted with suspected Osteomyelitis from infected L diabetic foot ulcer. 1. Suspected Osteomyelitis with infected L diabetic foot ulcer: BC pending Continue Vancomycin and Zosyn. Dr. Gutierrez took to OR last evening for I/D, gram stain from cultures showing gram positive cocci in pairs. Will monitor. Luekocytosis improving. Spoke with Dr Gutierrez this morning, he is still awaiting MRI report looking for osteomyelitis. May need PICC line placed for intermediate frame tender antibiotics. PT consult for gait training, Non-weight bearing to L foot. 2. DM type 2: BS improving, 204 this morning fasting. A1c 11.1 Will consult DM educator. Hold Metformin. Novolog SSI with meals and Levemir at bedtime. Will be sent home with Novolog and Levemir along with metformin 3. HTN: Continue Norvasc VTE prophylaxis: Lovenox. DIspo: 3-5 days pending improvement
[2017-08-22] MEDS: Enoxaparin 40 MG/0.4 ML Syringe SUBCUT SCH (11:26)
[2017-08-22] MEDS: Sodium Chloride 0.9% 1,000 ML IV SCH (11:29)
--- NOTE | 2017-08-22 12:39 | PCM.CONSN ---
- General Info Date of Service: 08/22/17 Admission Dx/Problem (Free Text): Admission Diagnosis/Problem Admission Diagnosis/Problem Diabetic foot ulcer Subjective Update: Doing well this morning. Having no pain to foot. No chest pain or SOB. No concerns over night. - Review of Systems General: Reports: No Symptoms HEENT: Reports: No Symptoms, Rhinitis Cardiovascular: Reports: No Symptoms Gastrointestinal: Reports: No Symptoms Genitourinary: Reports: No Symptoms Musculoskeletal: Reports: No Symptoms Skin: Reports: No Symptoms Neurological: Reports: No Symptoms Psychiatric: Reports: No Symptoms Systems Review Comment:: Patient reports no pain and is resting comfortably - Patient Data Vitals - Most Recent: Last Vital Signs Temp 36.4 C 08/22/17 07:45 Pulse 82 08/22/17 07:45 Resp 22 H 08/22/17 07:45 BP 154/73 H 08/22/17 08:24 Pulse Ox 95 08/22/17 07:45 Weight - Most Recent: 122.515 kg I&O - Last 24 Hours: Intake & Output 08/21/17 08/22/17 08/22/17 22:59 06:59 14:59 Intake Total 1750 2100 100 Output Total 500 2700 Balance 1250 -600 100 Lab Results Last 24 Hours: Laboratory Results - last 24 hr 08/21/17 08/21/17 08/21/17 Range/Units 14:24 14:24 14:24 WBC 11.76 H (4.0-11.0) K/uL RBC 4.97 (4.50-5.90) M/uL Hgb 13.9 (13.0-17.0) g/dL Hct 40.2 (38.0-50.0) % MCV 80.9 (80.0-98.0) fL MCH 28.0 (27.0-32.0) pg MCHC 34.6 (31.0-37.0) g/dL RDW Std Deviation 38.1 (28.0-62.0) fl RDW Coeff of Analy 13 (11.0-15.0) % Plt Count 211 (150-400) K/uL MPV 9.60 (7.40-12.00) fL Neut % (Auto) 74.8 (48.0-80.0) % Lymph % (Auto) 11.6 L (16.0-40.0) % [place] % (Auto) 7.8 (0.0-15.0) % Eos % (Auto) 5.4 (0.0-7.0) % Baso % (Auto) 0.4 (0.0-1.5) % Neut # (Auto) 8.8 H (1.4-5.7) K/uL Lymph # (Auto) 1.4 (0.6-2.4) K/uL [place] # (Auto) 0.9 H (0.0-0.8) K/uL Eos # (Auto) 0.6 (0.0-0.7) K/uL Baso # (Auto) 0.1 (0.0-0.1) K/uL Nucleated RBC % 0.0 /100WBC Nucleated RBCs # 0 K/uL INR 1.04 (0.86-1.11) Sodium 137 (136-146) mmol/L Potassium 4.4 (3.5-5.1) mmol/L Chloride 102 (98-110) mmol/L Carbon Dioxide 26 (21-31) mmol/L BUN 10 (6.0-23.0) mg/dL Creatinine 0.9 (0.6-1.5) mg/dL Est Cr Clr Drug Dosing TNP Estimated GFR (MDRD) > 60.0 ml/min Glucose 267 H (60-110) mg/dL POC Glucose (60-110) mg/dL Hemoglobin A1c (0.0-6.0) % Calcium 9.4 (8.8-10.8) mg/dL Total Bilirubin 0.7 (0.1-1.5) mg/dL AST 9 (5-40) IU/L ALT 9 (8-54) IU/L Alkaline Phosphatase 77 (40-150) Total Protein 6.7 (6.0-8.0) g/dL Albumin 3.8 (3.5-5.0) g/dL Globulin 2.9 (2.0-3.5) g/dL Albumin/Globulin Ratio 1.3 (1.3-2.8) 08/21/17 08/21/17 08/21/17 Range/Units 14:26 15:52 17:39 WBC (4.0-11.0) K/uL RBC (4.50-5.90) M/uL Hgb (13.0-17.0) g/dL Hct (38.0-50.0) % MCV (80.0-98.0) fL MCH (27.0-32.0) pg MCHC (31.0-37.0) g/dL RDW Std Deviation (28.0-62.0) fl RDW Coeff of Analy (11.0-15.0) % Plt Count (150-400) K/uL MPV (7.40-12.00) fL Neut % (Auto) (48.0-80.0) % Lymph % (Auto) (16.0-40.0) % [place] % (Auto) (0.0-15.0) % Eos % (Auto) (0.0-7.0) % Baso % (Auto) (0.0-1.5) % Neut # (Auto) (1.4-5.7) K/uL Lymph # (Auto) (0.6-2.4) K/uL [place] # (Auto) (0.0-0.8) K/uL Eos # (Auto) (0.0-0.7) K/uL Baso # (Auto) (0.0-0.1) K/uL Nucleated RBC % /100WBC Nucleated RBCs # K/uL INR (0.86-1.11) Sodium (136-146) mmol/L Potassium (3.5-5.1) mmol/L Chloride (98-110) mmol/L Carbon Dioxide (21-31) mmol/L BUN (6.0-23.0) mg/dL Creatinine (0.6-1.5) mg/dL Est Cr Clr Drug Dosing Estimated GFR (MDRD) ml/min Glucose (60-110) mg/dL POC Glucose 226 H 204 H (60-110) mg/dL Hemoglobin A1c 11.1 H (0.0-6.0) % Calcium (8.8-10.8) mg/dL Total Bilirubin (0.1-1.5) mg/dL AST (5-40) IU/L ALT (8-54) IU/L Alkaline Phosphatase (40-150) Total Protein (6.0-8.0) g/dL Albumin (3.5-5.0) g/dL Globulin (2.0-3.5) g/dL Albumin/Globulin Ratio (1.3-2.8) 08/21/17 08/22/17 08/22/17 Range/Units 21:00 05:12 05:12 WBC 10.35 (4.0-11.0) K/uL RBC 4.43 L (4.50-5.90) M/uL Hgb 12.3 L (13.0-17.0) g/dL Hct 36.0 L (38.0-50.0) % MCV 81.3 (80.0-98.0) fL MCH 27.8 (27.0-32.0) pg MCHC 34.2 (31.0-37.0) g/dL RDW Std Deviation 38.1 (28.0-62.0) fl RDW Coeff of Analy 13 (11.0-15.0) % Plt Count 175 (150-400) K/uL MPV 9.70 (7.40-12.00) fL Neut % (Auto) 73.6 (48.0-80.0) % Lymph % (Auto) 12.7 L (16.0-40.0) % [place] % (Auto) 7.6 (0.0-15.0) % Eos % (Auto) 5.5 (0.0-7.0) % Baso % (Auto) 0.6 (0.0-1.5) % Neut # (Auto) 7.6 H (1.4-5.7) K/uL Lymph # (Auto) 1.3 (0.6-2.4) K/uL [place] # (Auto) 0.8 (0.0-0.8) K/uL Eos # (Auto) 0.6 (0.0-0.7) K/uL Baso # (Auto) 0.1 (0.0-0.1) K/uL Nucleated RBC % 0.0 /100WBC Nucleated RBCs # 0 K/uL INR (0.86-1.11) Sodium 140 (136-146) mmol/L Potassium 3.8 (3.5-5.1) mmol/L Chloride 107 (98-110) mmol/L Carbon Dioxide 24 (21-31) mmol/L BUN 9 (6.0-23.0) mg/dL Creatinine 1.0 (0.6-1.5) mg/dL Est Cr Clr Drug Dosing 90.99 Estimated GFR (MDRD) > 60.0 ml/min Glucose 204 H (60-110) mg/dL POC Glucose 167 H (60-110) mg/dL Hemoglobin A1c (0.0-6.0) % Calcium 8.1 L (8.8-10.8) mg/dL Total Bilirubin (0.1-1.5) mg/dL AST (5-40) IU/L ALT (8-54) IU/L Alkaline Phosphatase (40-150) Total Protein (6.0-8.0) g/dL Albumin (3.5-5.0) g/dL Globulin (2.0-3.5) g/dL Albumin/Globulin Ratio (1.3-2.8) 08/22/17 08/22/17 Range/Units 06:22 11:48 WBC (4.0-11.0) K/uL RBC (4.50-5.90) M/uL Hgb (13.0-17.0) g/dL Hct (38.0-50.0) % MCV (80.0-98.0) fL MCH (27.0-32.0) pg MCHC (31.0-37.0) g/dL RDW Std Deviation (28.0-62.0) fl RDW Coeff of Analy (11.0-15.0) % Plt Count (150-400) K/uL MPV (7.40-12.00) fL Neut % (Auto) (48.0-80.0) % Lymph % (Auto) (16.0-40.0) % [place] % (Auto) (0.0-15.0) % Eos % (Auto) (0.0-7.0) % Baso % (Auto) (0.0-1.5) % Neut # (Auto) (1.4-5.7) K/uL Lymph # (Auto) (0.6-2.4) K/uL [place] # (Auto) (0.0-0.8) K/uL Eos # (Auto) (0.0-0.7) K/uL Baso # (Auto) (0.0-0.1) K/uL Nucleated RBC % /100WBC Nucleated RBCs # K/uL INR (0.86-1.11) Sodium (136-146) mmol/L Potassium (3.5-5.1) mmol/L Chloride (98-110) mmol/L Carbon Dioxide (21-31) mmol/L BUN (6.0-23.0) mg/dL Creatinine (0.6-1.5) mg/dL Est Cr Clr Drug Dosing Estimated GFR (MDRD) ml/min Glucose (60-110) mg/dL POC Glucose 175 H 241 H (60-110) mg/dL Hemoglobin A1c (0.0-6.0) % Calcium (8.8-10.8) mg/dL Total Bilirubin (0.1-1.5) mg/dL AST (5-40) IU/L ALT (8-54) IU/L Alkaline Phosphatase (40-150) Total Protein (6.0-8.0) g/dL Albumin (3.5-5.0) g/dL Globulin (2.0-3.5) g/dL Albumin/Globulin Ratio (1.3-2.8) Jered Results Last 24 Hours: Microbiology 08/21/17 18:24 Gram Stain - Preliminary Foot, Left Med Orders - Current: Current Medications Amlodipine Besylate (Norvasc) 10 mg PO DAILY [facility] Last Admin: 08/22/17 08:24 Dose: 10 mg Enoxaparin Sodium (Lovenox) 40 mg SUBCUT Q24H [facility] Last Admin: 08/22/17 11:26 Dose: 40 mg Fentanyl (Sublimaze) 50 mcg IVPUSH .Q5MIN PRN PRN Reason: Pain Piperacillin Sod/Tazobactam (Sod 4.5 gm/ Sodium Chloride) 100 mls @ 100 mls/hr IV Q6H [facility] Last Admin: 08/22/17 08:21 Dose: 100 mls/hr Sodium Chloride (Normal Saline) 1,000 mls @ 100 mls/hr IV ASDIRECTED [facility] Last Admin: 08/22/17 11:29 Dose: 100 mls/hr Vancomycin HCl 2 gm/ Sodium (Chloride) 500 mls @ 250 mls/hr IV Q12H [facility] Last Admin: 08/22/17 04:26 Dose: 250 mls/hr Insulin Aspart (Novolog) 0 unit SUBCUT TIDAC [facility] PRN Reason: Protocol Last Admin: 08/22/17 12:00 Dose: 6 units Insulin Detemir (Levemir) 15 unit SUBCUT BEDTIME [facility] Last Admin: 08/21/17 21:03 Dose: 15 units Ondansetron HCl (Zofran) 4 mg IVPUSH Q4H PRN PRN Reason: Nausea Sodium Chloride (Saline Flush) 2.5 ml FLUSH ASDIRECTED PRN PRN Reason: Keep Vein Open Discontinued Medications Bupivacaine HCl (Marcaine 0.5%) Confirm Administered Dose 30 ml .ROUTE .STK-MED ONE Stop: 08/21/17 14:56 Cefazolin Sodium (Ancef) Confirm Administered Dose 1 gm .ROUTE .STK-MED ONE Stop: 08/21/17 14:56 Desflurane (Suprane) Confirm Administered Dose 240 ml .ROUTE .STK-MED ONE Stop: 08/21/17 14:44 Fentanyl (Sublimaze) Confirm Administered Dose 250 mcg .ROUTE .STK-MED ONE Stop: 08/21/17 14:49 Vancomycin HCl 2 gm/ Sodium (Chloride) 500 mls @ 250 mls/hr IV Q12H [facility] Last Admin: 08/21/17 17:17 Dose: Not Given Insulin Aspart (Novolog) 0 unit SUBCUT TIDAC [facility] PRN Reason: Protocol Insulin Aspart (Novolog) 3 unit SUBCUT NOW [facility] Stop: 08/21/17 16:15 Last Admin: 08/21/17 17:08 Dose: 3 unit Lidocaine (Xylocaine-Mpf 2%) Confirm Administered Dose 5 ml .ROUTE .STK-MED ONE Stop: 08/21/17 14:49 Lidocaine HCl (Xylocaine 1%) Confirm Administered Dose 20 ml .ROUTE .STK-MED ONE Stop: 08/21/17 14:56 Midazolam HCl (Versed 1 Mg/Ml) Confirm Administered Dose 2 mg .ROUTE .STK-MED ONE Stop: 08/21/17 14:49 Ondansetron HCl (Zofran) Confirm Administered Dose 4 mg .ROUTE .STK-MED ONE Stop: 08/21/17 14:49 Phenylephrine HCl (Phenylephrine In Ns 100 Mcg/Ml) Confirm Administered Dose 1 mg .ROUTE .STK-MED ONE Stop: 08/21/17 18:17 Propofol (Diprivan 20 Ml) Confirm Administered Dose 200 mg .ROUTE .STK-MED ONE Stop: 08/21/17 14:49 Vancomycin HCl (Pharmacy To Dose - Vancomycin) 1 dose .XX ONETIME ONE Stop: 08/21/17 14:19 Last Admin: 08/21/17 17:18 Dose: Not Given - Exam Extremities: Other (small amount of purulence exsanguinated from left foot ulcer , minimally decreased erythema to left foot) Peripheral Pulses: 0: Carotid (L), Carotid (R), Brachial (L), Brachial (R), Radial (L), Radial (R), Femoral (L), Femoral (R), Popliteal (L), Popliteal (R), Posterior Tibial (L), Posterior Tibial (R), Dorsalis Pedis (L), Dorsalis Pedis ( R) Consult PN Assessment/Plan (1) Diabetic foot ulcer SNOMED Code(s): 423408326 Code(s): E11.621 - TYPE 2 DIABETES MELLITUS WITH FOOT ULCER; L97.509 - NON- PRESSURE CHRONIC ULCER OTH PRT UNSP FOOT W UNSP SEVERITY Current Visit: Yes Qualifiers: Diabetic foot ulcer location: midfoot Diabetes mellitus type: type 2 Laterality: left Non-pressure ulcer stage: with bone involvement without evidence of necrosis Qualified Code(s): E11.621 - Type 2 diabetes mellitus with foot ulcer; L97.426 - 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 There was strikethrough to outer bandage but not to JOSESITO bandage. Ulcerated area flushed with saline spray and ulcer packed with betadine soaked iodofore quarter inch packing, and padded with fluff gauze, secured by kerlix roll and josesito bandage. Prior to applying new dressing, I exsanguinated the ulcerated area and surrounding tissue and did note a small amount of purulence. MRI report is given to be added to record - it did not find focal areas of likely osteomyelitis. Therefore plan is to maintiain IV antibiotics. Final C&S result pending from surgery last night. Blood sugar control remains a problem and patient needs to maintain nonweight bearing to left lower extremity. He will likely need two to four days more treatment prior to discharge and may be returned for further OR debridement and I&D if purulence persists or cellulitis does not resolve. PT to gait train.
[2017-08-22] MEDS ORDERED: Acetaminophen/HYDROcodone 325-5 MG Tab PO PRN (14:28)
[2017-08-22] MEDS: Insulin Detemir 100 Units/ML 3 ML Pen SUBCUT SCH (20:40)
[2017-08-23] MEDS: Sodium Chloride 0.9% 1,000 ML IV SCH (01:25)
[2017-08-23] MEDS: Piperacillin/Tazobactam 4.5 GM in Sodium Chloride 0.9% 100 ML IV SCH ×4 (01:30→21:30)
[2017-08-23] MEDS: Vancomycin 2 GM in Sodium Chloride 0.9% 500 ML IV SCH ×2 (04:45→17:54)
[2017-08-23 06:28] LABS: CHLORIDE,CL 111 mmol/L (98-110); SODIUM,NA 140 mmol/L (136-146)
[2017-08-23] MEDS: Insulin Aspart 100 Units/ML 3 ML Pen SUBCUT SCH ×3 (07:04→17:21)
[2017-08-23] MEDS: amLODIPine 5 MG Tab PO SCH (08:22)
--- NOTE | 2017-08-23 08:49 | PCM.PN ---
- Review of Systems Systems Review Comment:: no new complaints, no foot pain - Patient Data Vitals - Most Recent: Last Vital Signs Temp 35.9 C 08/23/17 08:00 Pulse 81 08/23/17 08:00 Resp 20 08/23/17 08:00 BP 178/81 H 08/23/17 08:22 Pulse Ox 96 08/23/17 08:00 Weight - Most Recent: 122.515 kg I&O - Last 24 Hours: Intake & Output 08/22/17 08/23/17 08/23/17 22:59 06:59 14:59 Intake Total 3739 1009 Output Total 2975 3500 Balance 764 -2491 Lab Results Last 24 Hours: Laboratory Results - last 24 hr 08/22/17 08/22/17 08/22/17 Range/Units 11:48 16:32 17:07 WBC (4.0-11.0) K/uL RBC (4.50-5.90) M/uL Hgb (13.0-17.0) g/dL Hct (38.0-50.0) % MCV (80.0-98.0) fL MCH (27.0-32.0) pg MCHC (31.0-37.0) g/dL RDW Std Deviation (28.0-62.0) fl RDW Coeff of Analy (11.0-15.0) % Plt Count (150-400) K/uL MPV (7.40-12.00) fL Neut % (Auto) (48.0-80.0) % Lymph % (Auto) (16.0-40.0) % [place] % (Auto) (0.0-15.0) % Eos % (Auto) (0.0-7.0) % Baso % (Auto) (0.0-1.5) % Neut # (Auto) (1.4-5.7) K/uL Lymph # (Auto) (0.6-2.4) K/uL [place] # (Auto) (0.0-0.8) K/uL Eos # (Auto) (0.0-0.7) K/uL Baso # (Auto) (0.0-0.1) K/uL Nucleated RBC % /100WBC Nucleated RBCs # K/uL Sodium (136-146) mmol/L Potassium (3.5-5.1) mmol/L Chloride (98-110) mmol/L Carbon Dioxide (21-31) mmol/L BUN (6.0-23.0) mg/dL Creatinine (0.6-1.5) mg/dL Est Cr Clr Drug Dosing mL/min Estimated GFR (MDRD) ml/min Glucose (60-110) mg/dL POC Glucose 241 H 206 H (60-110) mg/dL Calcium (8.8-10.8) mg/dL Vancomycin Trough 14.9 (5-15) ug/mL 08/23/17 08/23/17 Range/Units 05:40 05:40 WBC 8.75 (4.0-11.0) K/uL RBC 4.52 (4.50-5.90) M/uL Hgb 12.4 L (13.0-17.0) g/dL Hct 37.0 L (38.0-50.0) % MCV 81.9 (80.0-98.0) fL MCH 27.4 (27.0-32.0) pg MCHC 33.5 (31.0-37.0) g/dL RDW Std Deviation 39.1 (28.0-62.0) fl RDW Coeff of Analy 13 (11.0-15.0) % Plt Count 201 (150-400) K/uL MPV 9.70 (7.40-12.00) fL Neut % (Auto) 67.4 (48.0-80.0) % Lymph % (Auto) 14.3 L (16.0-40.0) % [place] % (Auto) 9.9 (0.0-15.0) % Eos % (Auto) 7.7 H (0.0-7.0) % Baso % (Auto) 0.7 (0.0-1.5) % Neut # (Auto) 5.9 H (1.4-5.7) K/uL Lymph # (Auto) 1.3 (0.6-2.4) K/uL [place] # (Auto) 0.9 H (0.0-0.8) K/uL Eos # (Auto) 0.7 (0.0-0.7) K/uL Baso # (Auto) 0.1 (0.0-0.1) K/uL Nucleated RBC % 0.0 /100WBC Nucleated RBCs # 0 K/uL Sodium 140 (136-146) mmol/L Potassium 3.8 (3.5-5.1) mmol/L Chloride 111 H (98-110) mmol/L Carbon Dioxide 20 L (21-31) mmol/L BUN 10 (6.0-23.0) mg/dL Creatinine 1.2 (0.6-1.5) mg/dL Est Cr Clr Drug Dosing 75.82 mL/min Estimated GFR (MDRD) > 60.0 ml/min Glucose 188 H (60-110) mg/dL POC Glucose (60-110) mg/dL Calcium 8.5 L (8.8-10.8) mg/dL Vancomycin Trough (5-15) ug/mL Jered Results Last 24 Hours: Microbiology 08/21/17 18:24 Anaerobic Culture - Final Foot, Left NO ANAEROBES ISOLATED 08/21/17 15:45 Aerobic Blood Culture - Preliminary Blood - Venous - Lab Draw NO GROWTH AFTER 1 DAY Anaerobic Blood Culture - Preliminary NO GROWTH AFTER 1 DAY 08/21/17 15:35 Aerobic Blood Culture - Preliminary Blood - Venous NO GROWTH AFTER 1 DAY Anaerobic Blood Culture - Preliminary NO GROWTH AFTER 1 DAY Med Orders - Current: Current Medications Hydrocodone Bitart/Acetaminophen ([place] 325-5 Mg) 1 - 2 tab PO Q4H PRN PRN Reason: Pain Amlodipine Besylate (Norvasc) 10 mg PO DAILY [facility] Last Admin: 08/23/17 08:22 Dose: 10 mg Enoxaparin Sodium (Lovenox) 40 mg SUBCUT Q24H [facility] Last Admin: 08/22/17 11:26 Dose: 40 mg Fentanyl (Sublimaze) 50 mcg IVPUSH .Q5MIN PRN PRN Reason: Pain Piperacillin Sod/Tazobactam (Sod 4.5 gm/ Sodium Chloride) 100 mls @ 100 mls/hr IV Q6H [facility] Last Admin: 08/23/17 08:21 Dose: 100 mls/hr Sodium Chloride (Normal Saline) 1,000 mls @ 100 mls/hr IV ASDIRECTED [facility] Last Admin: 08/23/17 01:25 Dose: 100 mls/hr Vancomycin HCl 2 gm/ Sodium (Chloride) 500 mls @ 250 mls/hr IV Q12H [facility] Last Admin: 08/23/17 04:45 Dose: 250 mls/hr Insulin Aspart (Novolog) 0 unit SUBCUT TIDAC [facility] PRN Reason: Protocol Last Admin: 08/23/17 07:04 Dose: 6 units Insulin Detemir (Levemir) 18 unit SUBCUT BEDTIME [facility] Last Admin: 08/22/17 20:40 Dose: 18 units Ondansetron HCl (Zofran) 4 mg IVPUSH Q4H PRN PRN Reason: Nausea Sodium Chloride (Saline Flush) 2.5 ml FLUSH ASDIRECTED PRN PRN Reason: Keep Vein Open Discontinued Medications Bupivacaine HCl (Marcaine 0.5%) Confirm Administered Dose 30 ml .ROUTE .STK-MED ONE Stop: 08/21/17 14:56 Cefazolin Sodium (Ancef) Confirm Administered Dose 1 gm .ROUTE .STK-MED ONE Stop: 08/21/17 14:56 Desflurane (Suprane) Confirm Administered Dose 240 ml .ROUTE .STK-MED ONE Stop: 08/21/17 14:44 Fentanyl (Sublimaze) Confirm Administered Dose 250 mcg .ROUTE .STK-MED ONE Stop: 08/21/17 14:49 Vancomycin HCl 2 gm/ Sodium (Chloride) 500 mls @ 250 mls/hr IV Q12H [facility] Last Admin: 08/21/17 17:17 Dose: Not Given Insulin Aspart (Novolog) 0 unit SUBCUT TIDAC [facility] PRN Reason: Protocol Insulin Aspart (Novolog) 3 unit SUBCUT [facility] Stop: 08/21/17 16:15 Last Admin: 08/21/17 17:08 Dose: 3 unit Insulin Detemir (Levemir) 15 unit SUBCUT BEDTIME [facility] Last Admin: 08/21/17 21:03 Dose: 15 units Lidocaine (Xylocaine-Mpf 2%) Confirm Administered Dose 5 ml .ROUTE .STK-MED ONE Stop: 08/21/17 14:49 Lidocaine HCl (Xylocaine 1%) Confirm Administered Dose 20 ml .ROUTE .STK-MED ONE Stop: 08/21/17 14:56 Midazolam HCl (Versed 1 Mg/Ml) Confirm Administered Dose 2 mg .ROUTE .STK-MED ONE Stop: 08/21/17 14:49 Ondansetron HCl (Zofran) Confirm Administered Dose 4 mg .ROUTE .STK-MED ONE Stop: 08/21/17 14:49 Phenylephrine HCl (Phenylephrine In Ns 100 Mcg/Ml) Confirm Administered Dose 1 mg .ROUTE .STK-MED ONE Stop: 08/21/17 18:17 Propofol (Diprivan 20 Ml) Confirm Administered Dose 200 mg .ROUTE .STK-MED ONE Stop: 08/21/17 14:49 Vancomycin HCl (Pharmacy To Dose - Vancomycin) 1 dose .XX ONETIME ONE Stop: 08/21/17 14:19 Last Admin: 08/21/17 17:18 Dose: Not Given - Exam General: Alert, Oriented Lungs: Clear to Auscultation, Normal Respiratory Effort GI/Abdominal Exam: Normal Bowel Sounds, Soft, Non-Tender Extremities: Other (left foot bandaged) Neurological: No New Focal Deficit - Problem List Review Problem List Initiated/Reviewed/Updated: Yes - Plan Plan:: This 52 year old male admitted with suspected Osteomyelitis from infected L diabetic foot ulcer. 1. Left diabetic foot ulcer: will continue vancomycin and zosyn while awaiting cultures. Per Dr. Gutierrez MRI does not show any evidence of osteiomyelitis. 2. DM type 2: DM educator consulted. Hold Metformin. Novolog SSI with meals and Levemir 18 units at bedtime. Will be sent home with Novolog and Levemir along with metformin 3. HTN: Continue Norvasc VTE prophylaxis: Lovenox. DIspo: 3-5 days pending improvement
[2017-08-23] MEDS: Enoxaparin 40 MG/0.4 ML Syringe SUBCUT SCH (10:44)
--- NOTE | 2017-08-23 14:08 | PCM.CONSN ---
- General Info Date of Service: 08/23/17 Admission Dx/Problem (Free Text): Admission Diagnosis/Problem Admission Diagnosis/Problem Diabetic foot ulcer Subjective Update: Doing well this afternoon. Having no pain to foot. No chest pain or SOB. No concerns over night. - Patient Data Vitals - Most Recent: Last Vital Signs Temp 35.6 C 08/23/17 12:00 Pulse 78 08/23/17 12:00 Resp 20 08/23/17 12:00 BP 174/87 H 08/23/17 12:00 Pulse Ox 100 08/23/17 12:00 Weight - Most Recent: 122.515 kg I&O - Last 24 Hours: Intake & Output 08/22/17 08/23/17 08/23/17 22:59 06:59 14:59 Intake Total 3739 1009 100 Output Total 2975 3500 Balance 764 -2491 100 Lab Results Last 24 Hours: Laboratory Results - last 24 hr 08/22/17 08/22/17 08/23/17 Range/Units 16:32 17:07 05:40 WBC 8.75 (4.0-11.0) K/uL RBC 4.52 (4.50-5.90) M/uL Hgb 12.4 L (13.0-17.0) g/dL Hct 37.0 L (38.0-50.0) % MCV 81.9 (80.0-98.0) fL MCH 27.4 (27.0-32.0) pg MCHC 33.5 (31.0-37.0) g/dL RDW Std Deviation 39.1 (28.0-62.0) fl RDW Coeff of Analy 13 (11.0-15.0) % Plt Count 201 (150-400) K/uL MPV 9.70 (7.40-12.00) fL Neut % (Auto) 67.4 (48.0-80.0) % Lymph % (Auto) 14.3 L (16.0-40.0) % [place] % (Auto) 9.9 (0.0-15.0) % Eos % (Auto) 7.7 H (0.0-7.0) % Baso % (Auto) 0.7 (0.0-1.5) % Neut # (Auto) 5.9 H (1.4-5.7) K/uL Lymph # (Auto) 1.3 (0.6-2.4) K/uL [place] # (Auto) 0.9 H (0.0-0.8) K/uL Eos # (Auto) 0.7 (0.0-0.7) K/uL Baso # (Auto) 0.1 (0.0-0.1) K/uL Nucleated RBC % 0.0 /100WBC Nucleated RBCs # 0 K/uL Sodium (136-146) mmol/L Potassium (3.5-5.1) mmol/L Chloride (98-110) mmol/L Carbon Dioxide (21-31) mmol/L BUN (6.0-23.0) mg/dL Creatinine (0.6-1.5) mg/dL Est Cr Clr Drug Dosing mL/min Estimated GFR (MDRD) ml/min Glucose (60-110) mg/dL POC Glucose 206 H (60-110) mg/dL Calcium (8.8-10.8) mg/dL Vancomycin Trough 14.9 (5-15) ug/mL 08/23/17 08/23/17 08/23/17 Range/Units 05:40 06:19 11:39 WBC (4.0-11.0) K/uL RBC (4.50-5.90) M/uL Hgb (13.0-17.0) g/dL Hct (38.0-50.0) % MCV (80.0-98.0) fL MCH (27.0-32.0) pg MCHC (31.0-37.0) g/dL RDW Std Deviation (28.0-62.0) fl RDW Coeff of Analy (11.0-15.0) % Plt Count (150-400) K/uL MPV (7.40-12.00) fL Neut % (Auto) (48.0-80.0) % Lymph % (Auto) (16.0-40.0) % [place] % (Auto) (0.0-15.0) % Eos % (Auto) (0.0-7.0) % Baso % (Auto) (0.0-1.5) % Neut # (Auto) (1.4-5.7) K/uL Lymph # (Auto) (0.6-2.4) K/uL [place] # (Auto) (0.0-0.8) K/uL Eos # (Auto) (0.0-0.7) K/uL Baso # (Auto) (0.0-0.1) K/uL Nucleated RBC % /100WBC Nucleated RBCs # K/uL Sodium 140 (136-146) mmol/L Potassium 3.8 (3.5-5.1) mmol/L Chloride 111 H (98-110) mmol/L Carbon Dioxide 20 L (21-31) mmol/L BUN 10 (6.0-23.0) mg/dL Creatinine 1.2 (0.6-1.5) mg/dL Est Cr Clr Drug Dosing 75.82 mL/min Estimated GFR (MDRD) > 60.0 ml/min Glucose 188 H (60-110) mg/dL POC Glucose 207 H 170 H (60-110) mg/dL Calcium 8.5 L (8.8-10.8) mg/dL Vancomycin Trough (5-15) ug/mL Jered Results Last 24 Hours: Microbiology 08/21/17 18:24 Wound Culture - Preliminary Foot, Left 08/21/17 18:24 Gram Stain - Final Foot, Left 08/21/17 18:24 Anaerobic Culture - Final Foot, Left NO ANAEROBES ISOLATED 08/21/17 15:45 Aerobic Blood Culture - Preliminary Blood - Venous - Lab Draw NO GROWTH AFTER 1 DAY Anaerobic Blood Culture - Preliminary NO GROWTH AFTER 1 DAY 08/21/17 15:35 Aerobic Blood Culture - Preliminary Blood - Venous NO GROWTH AFTER 1 DAY Anaerobic Blood Culture - Preliminary NO GROWTH AFTER 1 DAY Med Orders - Current: Current Medications Hydrocodone Bitart/Acetaminophen ([place] 325-5 Mg) 1 - 2 tab PO Q4H PRN PRN Reason: Pain Amlodipine Besylate (Norvasc) 10 mg PO DAILY [facility] Last Admin: 08/23/17 08:22 Dose: 10 mg Enoxaparin Sodium (Lovenox) 40 mg SUBCUT Q24H [facility] Last Admin: 08/23/17 10:44 Dose: 40 mg Fentanyl (Sublimaze) 50 mcg IVPUSH .Q5MIN PRN PRN Reason: Pain Piperacillin Sod/Tazobactam (Sod 4.5 gm/ Sodium Chloride) 100 mls @ 100 mls/hr IV Q6H [facility] Last Admin: 08/23/17 08:21 Dose: 100 mls/hr Sodium Chloride (Normal Saline) 1,000 mls @ 100 mls/hr IV ASDIRECTED [facility] Last Admin: 08/23/17 01:25 Dose: 100 mls/hr Vancomycin HCl 2 gm/ Sodium (Chloride) 500 mls @ 250 mls/hr IV Q12H [facility] Last Admin: 08/23/17 04:45 Dose: 250 mls/hr Insulin Aspart (Novolog) 0 unit SUBCUT TIDAC [facility] PRN Reason: Protocol Last Admin: 08/23/17 12:22 Dose: 3 units Insulin Detemir (Levemir) 18 unit SUBCUT BEDTIME [facility] Last Admin: 08/22/17 20:40 Dose: 18 units Ondansetron HCl (Zofran) 4 mg IVPUSH Q4H PRN PRN Reason: Nausea Sodium Chloride (Saline Flush) 2.5 ml FLUSH ASDIRECTED PRN PRN Reason: Keep Vein Open Discontinued Medications Bupivacaine HCl (Marcaine 0.5%) Confirm Administered Dose 30 ml .ROUTE .STK-MED ONE Stop: 08/21/17 14:56 Cefazolin Sodium (Ancef) Confirm Administered Dose 1 gm .ROUTE .STK-MED ONE Stop: 08/21/17 14:56 Desflurane (Suprane) Confirm Administered Dose 240 ml .ROUTE .STK-MED ONE Stop: 08/21/17 14:44 Fentanyl (Sublimaze) Confirm Administered Dose 250 mcg .ROUTE .STK-MED ONE Stop: 08/21/17 14:49 Vancomycin HCl 2 gm/ Sodium (Chloride) 500 mls @ 250 mls/hr IV Q12H [facility] Last Admin: 08/21/17 17:17 Dose: Not Given Insulin Aspart (Novolog) 0 unit SUBCUT TIDAC [facility] PRN Reason: Protocol Insulin Aspart (Novolog) 3 unit SUBCUT NOW [facility] Stop: 08/21/17 16:15 Last Admin: 08/21/17 17:08 Dose: 3 unit Insulin Detemir (Levemir) 15 unit SUBCUT BEDTIME [facility] Last Admin: 08/21/17 21:03 Dose: 15 units Lidocaine (Xylocaine-Mpf 2%) Confirm Administered Dose 5 ml .ROUTE .STK-MED ONE Stop: 08/21/17 14:49 Lidocaine HCl (Xylocaine 1%) Confirm Administered Dose 20 ml .ROUTE .STK-MED ONE Stop: 08/21/17 14:56 Midazolam HCl (Versed 1 Mg/Ml) Confirm Administered Dose 2 mg .ROUTE .STK-MED ONE Stop: 08/21/17 14:49 Ondansetron HCl (Zofran) Confirm Administered Dose 4 mg .ROUTE .STK-MED ONE Stop: 08/21/17 14:49 Phenylephrine HCl (Phenylephrine In Ns 100 Mcg/Ml) Confirm Administered Dose 1 mg .ROUTE .STK-MED ONE Stop: 08/21/17 18:17 Propofol (Diprivan 20 Ml) Confirm Administered Dose 200 mg .ROUTE .STK-MED ONE Stop: 08/21/17 14:49 Vancomycin HCl (Pharmacy To Dose - Vancomycin) 1 dose .XX ONETIME ONE Stop: 08/21/17 14:19 Last Admin: 08/21/17 17:18 Dose: Not Given - Exam Peripheral Pulses: 1+: Posterior Tibial (L), Dorsalis Pedis (L) Wound/Incisions: Drainage (despite improvement in edema and erythema there is a small amount of persistent purulent drainage.), Erythema (reduced from yesterday), Erythema Improving Consult PN Assessment/Plan POD#: 2 Procedures: status post I&D 2 days for left foot diabetic ulcer (1) Diabetic foot ulcer SNOMED Code(s): 447718509 Code(s): E11.621 - TYPE 2 DIABETES MELLITUS WITH FOOT ULCER; L97.509 - NON- PRESSURE CHRONIC ULCER OTH PRT UNSP FOOT W UNSP SEVERITY Current Visit: Yes Qualifiers: Diabetic foot ulcer location: midfoot Diabetes mellitus type: type 2 Laterality: left Non-pressure ulcer stage: with bone involvement without evidence of necrosis Qualified Code(s): E11.621 - Type 2 diabetes mellitus with foot ulcer; L97.426 - 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 There was strikethrough to outer bandage but not to JOSESITO bandage. Cellulitis and edema continue to improve. Ulcerated area flushed today with manual pulse lavage using 60 cc syringe twice containing normal sterile saline with small amount of betadine mixed in. I exsanguinated the area manually and repeatedly and did note a small amount of purulence initially but not on last attempt. Ulcer packed with betadine soaked iodofore quarter inch packing, and padded with fluff gauze, secured by kerlix roll and josesito bandage. Plan is to maintiain IV antibiotics. Patient has been gait trained by PT and will be seen again by them Friday he says - patient appears to be eager to comply to the fullest extent. His blood sugar still needs to improve more. If purulence persists a return to the OR is possible but there is a good chance that the remaining purulence production is winding down - WBC and specifically neutrophils are reduced today. I will perform another dressing change and flush tomorrow and will follow.
[2017-08-23] MEDS: Insulin Detemir 100 Units/ML 3 ML Pen SUBCUT SCH (21:34)
[2017-08-24] MEDS: Piperacillin/Tazobactam 4.5 GM in Sodium Chloride 0.9% 100 ML IV SCH ×4 (02:55→20:25)
[2017-08-24] MEDS: Vancomycin 2 GM in Sodium Chloride 0.9% 500 ML IV SCH ×2 (04:12→17:17)
[2017-08-24] MEDS: Insulin Aspart 100 Units/ML 3 ML Pen SUBCUT SCH ×3 (07:07→17:15)
[2017-08-24] MEDS: amLODIPine 5 MG Tab PO SCH (08:21)
--- NOTE | 2017-08-24 09:19 | PCM.PN ---
- Review of Systems Systems Review Comment:: no complaints - Patient Data Vitals - Most Recent: Last Vital Signs Temp 36.4 C 08/24/17 08:00 Pulse 81 08/24/17 08:00 Resp 20 08/24/17 08:00 BP 175/79 H 08/24/17 08:21 Pulse Ox 98 08/24/17 08:00 Weight - Most Recent: 122.515 kg I&O - Last 24 Hours: Intake & Output 08/23/17 08/24/17 08/24/17 22:59 06:59 14:59 Intake Total 1930 1000 Output Total 1620 1650 Balance 310 -650 Lab Results Last 24 Hours: Laboratory Results - last 24 hr 08/23/17 08/23/17 08/23/17 Range/Units 06:19 11:39 16:30 WBC (4.0-11.0) K/uL RBC (4.50-5.90) M/uL Hgb (13.0-17.0) g/dL Hct (38.0-50.0) % MCV (80.0-98.0) fL MCH (27.0-32.0) pg MCHC (31.0-37.0) g/dL RDW Std Deviation (28.0-62.0) fl RDW Coeff of Analy (11.0-15.0) % Plt Count (150-400) K/uL MPV (7.40-12.00) fL Neut % (Auto) (48.0-80.0) % Lymph % (Auto) (16.0-40.0) % [place] % (Auto) (0.0-15.0) % Eos % (Auto) (0.0-7.0) % Baso % (Auto) (0.0-1.5) % Neut # (Auto) (1.4-5.7) K/uL Lymph # (Auto) (0.6-2.4) K/uL [place] # (Auto) (0.0-0.8) K/uL Eos # (Auto) (0.0-0.7) K/uL Baso # (Auto) (0.0-0.1) K/uL Nucleated RBC % /100WBC Nucleated RBCs # K/uL Sodium (136-146) mmol/L Potassium (3.5-5.1) mmol/L Chloride (98-110) mmol/L Carbon Dioxide (21-31) mmol/L BUN (6.0-23.0) mg/dL Creatinine (0.6-1.5) mg/dL Est Cr Clr Drug Dosing mL/min Estimated GFR (MDRD) ml/min Glucose (60-110) mg/dL POC Glucose 207 H 170 H (60-110) mg/dL Calcium (8.8-10.8) mg/dL Vancomycin Trough 17.5 H (5-15) ug/mL 08/23/17 08/23/17 08/24/17 Range/Units 16:46 21:14 05:45 WBC 7.89 (4.0-11.0) K/uL RBC 4.49 L (4.50-5.90) M/uL Hgb 12.2 L (13.0-17.0) g/dL Hct 36.7 L (38.0-50.0) % MCV 81.7 (80.0-98.0) fL MCH 27.2 (27.0-32.0) pg MCHC 33.2 (31.0-37.0) g/dL RDW Std Deviation 38.4 (28.0-62.0) fl RDW Coeff of Analy 13 (11.0-15.0) % Plt Count 208 (150-400) K/uL MPV 9.60 (7.40-12.00) fL Neut % (Auto) 67.9 (48.0-80.0) % Lymph % (Auto) 15.5 L (16.0-40.0) % [place] % (Auto) 9.3 (0.0-15.0) % Eos % (Auto) 6.7 (0.0-7.0) % Baso % (Auto) 0.6 (0.0-1.5) % Neut # (Auto) 5.4 (1.4-5.7) K/uL Lymph # (Auto) 1.2 (0.6-2.4) K/uL [place] # (Auto) 0.7 (0.0-0.8) K/uL Eos # (Auto) 0.5 (0.0-0.7) K/uL Baso # (Auto) 0.1 (0.0-0.1) K/uL Nucleated RBC % 0.0 /100WBC Nucleated RBCs # 0 K/uL Sodium (136-146) mmol/L Potassium (3.5-5.1) mmol/L Chloride (98-110) mmol/L Carbon Dioxide (21-31) mmol/L BUN (6.0-23.0) mg/dL Creatinine (0.6-1.5) mg/dL Est Cr Clr Drug Dosing mL/min Estimated GFR (MDRD) ml/min Glucose (60-110) mg/dL POC Glucose 199 H 243 H (60-110) mg/dL Calcium (8.8-10.8) mg/dL Vancomycin Trough (5-15) ug/mL 08/24/17 08/24/17 Range/Units 05:45 07:00 WBC (4.0-11.0) K/uL RBC (4.50-5.90) M/uL Hgb (13.0-17.0) g/dL Hct (38.0-50.0) % MCV (80.0-98.0) fL MCH (27.0-32.0) pg MCHC (31.0-37.0) g/dL RDW Std Deviation (28.0-62.0) fl RDW Coeff of Analy (11.0-15.0) % Plt Count (150-400) K/uL MPV (7.40-12.00) fL Neut % (Auto) (48.0-80.0) % Lymph % (Auto) (16.0-40.0) % [place] % (Auto) (0.0-15.0) % Eos % (Auto) (0.0-7.0) % Baso % (Auto) (0.0-1.5) % Neut # (Auto) (1.4-5.7) K/uL Lymph # (Auto) (0.6-2.4) K/uL [place] # (Auto) (0.0-0.8) K/uL Eos # (Auto) (0.0-0.7) K/uL Baso # (Auto) (0.0-0.1) K/uL Nucleated RBC % /100WBC Nucleated RBCs # K/uL Sodium 142 (136-146) mmol/L Potassium 3.6 (3.5-5.1) mmol/L Chloride 111 H (98-110) mmol/L Carbon Dioxide 22 (21-31) mmol/L BUN 11 (6.0-23.0) mg/dL Creatinine 1.3 (0.6-1.5) mg/dL Est Cr Clr Drug Dosing 69.99 mL/min Estimated GFR (MDRD) 57.7 ml/min Glucose 178 H (60-110) mg/dL POC Glucose 179 H (60-110) mg/dL Calcium 8.3 L (8.8-10.8) mg/dL Vancomycin Trough (5-15) ug/mL Jered Results Last 24 Hours: Microbiology 08/21/17 18:24 Wound Culture - Final Foot, Left Staphylococcus Aureus Streptococcus Agalactiae Grp B 08/21/17 15:45 Aerobic Blood Culture - Preliminary Blood - Venous - Lab Draw NO GROWTH AFTER 2 DAYS Anaerobic Blood Culture - Preliminary NO GROWTH AFTER 2 DAYS 08/21/17 15:35 Aerobic Blood Culture - Preliminary Blood - Venous NO GROWTH AFTER 2 DAYS Anaerobic Blood Culture - Preliminary NO GROWTH AFTER 2 DAYS 08/21/17 18:24 Gram Stain - Final Foot, Left 08/21/17 18:24 Anaerobic Culture - Final Foot, Left NO ANAEROBES ISOLATED Med Orders - Current: Current Medications Hydrocodone Bitart/Acetaminophen ([place] 325-5 Mg) 1 - 2 tab PO Q4H PRN PRN Reason: Pain Amlodipine Besylate (Norvasc) 10 mg PO DAILY [facility] Last Admin: 08/24/17 08:21 Dose: 10 mg Enoxaparin Sodium (Lovenox) 40 mg SUBCUT Q24H [facility] Last Admin: 08/23/17 10:44 Dose: 40 mg Fentanyl (Sublimaze) 50 mcg IVPUSH .Q5MIN PRN PRN Reason: Pain Piperacillin Sod/Tazobactam (Sod 4.5 gm/ Sodium Chloride) 100 mls @ 100 mls/hr IV Q6H [facility] Last Admin: 08/24/17 08:21 Dose: 100 mls/hr Sodium Chloride (Normal Saline) 1,000 mls @ 100 mls/hr IV ASDIRECTED [facility] Last Admin: 08/23/17 01:25 Dose: 100 mls/hr Vancomycin HCl 2 gm/ Sodium (Chloride) 500 mls @ 250 mls/hr IV Q12H [facility] Last Admin: 08/24/17 04:12 Dose: 250 mls/hr Insulin Aspart (Novolog) 0 unit SUBCUT TIDAC [facility] PRN Reason: Protocol Last Admin: 08/24/17 07:07 Dose: 3 units Insulin Detemir (Levemir) 18 unit SUBCUT BEDTIME [facility] Last Admin: 08/23/17 21:34 Dose: 18 units Ondansetron HCl (Zofran) 4 mg IVPUSH Q4H PRN PRN Reason: Nausea Sodium Chloride (Saline Flush) 2.5 ml FLUSH ASDIRECTED PRN PRN Reason: Keep Vein Open Discontinued Medications Bupivacaine HCl (Marcaine 0.5%) Confirm Administered Dose 30 ml .ROUTE .STK-MED ONE Stop: 08/21/17 14:56 Cefazolin Sodium (Ancef) Confirm Administered Dose 1 gm .ROUTE .STK-MED ONE Stop: 08/21/17 14:56 Desflurane (Suprane) Confirm Administered Dose 240 ml .ROUTE .STK-MED ONE Stop: 08/21/17 14:44 Fentanyl (Sublimaze) Confirm Administered Dose 250 mcg .ROUTE .STK-MED ONE Stop: 08/21/17 14:49 Vancomycin HCl 2 gm/ Sodium (Chloride) 500 mls @ 250 mls/hr IV Q12H [facility] Last Admin: 08/21/17 17:17 Dose: Not Given Insulin Aspart (Novolog) 0 unit SUBCUT TIDAC [facility] PRN Reason: Protocol Insulin Aspart (Novolog) 3 unit SUBCUT NOW [facility] Stop: 08/21/17 16:15 Last Admin: 08/21/17 17:08 Dose: 3 unit Insulin Detemir (Levemir) 15 unit SUBCUT BEDTIME [facility] Last Admin: 08/21/17 21:03 Dose: 15 units Lidocaine (Xylocaine-Mpf 2%) Confirm Administered Dose 5 ml .ROUTE .STK-MED ONE Stop: 08/21/17 14:49 Lidocaine HCl (Xylocaine 1%) Confirm Administered Dose 20 ml .ROUTE .STK-MED ONE Stop: 08/21/17 14:56 Midazolam HCl (Versed 1 Mg/Ml) Confirm Administered Dose 2 mg .ROUTE .STK-MED ONE Stop: 08/21/17 14:49 Ondansetron HCl (Zofran) Confirm Administered Dose 4 mg .ROUTE .STK-MED ONE Stop: 08/21/17 14:49 Phenylephrine HCl (Phenylephrine In Ns 100 Mcg/Ml) Confirm Administered Dose 1 mg .ROUTE .STK-MED ONE Stop: 08/21/17 18:17 Propofol (Diprivan 20 Ml) Confirm Administered Dose 200 mg .ROUTE .STK-MED ONE Stop: 08/21/17 14:49 Vancomycin HCl (Pharmacy To Dose - Vancomycin) 1 dose .XX ONETIME ONE Stop: 08/21/17 14:19 Last Admin: 08/21/17 17:18 Dose: Not Given - Exam General: Alert, Oriented Lungs: Clear to Auscultation, Normal Respiratory Effort Cardiovascular: Regular Rate, Regular Rhythm GI/Abdominal Exam: Soft, Non-Tender Extremities: Non-Tender, Other (left foot bandaged) - Problem List Review Problem List Initiated/Reviewed/Updated: Yes - Plan Plan:: This 52 year old male admitted with suspected Osteomyelitis from infected L diabetic foot ulcer. Left diabetic foot ulcer: will continue vancomycin and zosyn. DM type 2: DM educator consulted. Hold Metformin. Novolog SSI with meals and increase Levemir to 20 units at bedtime. Will be sent home with Novolog and Levemir along with metformin HTN: Continue Norvasc VTE prophylaxis: Lovenox. DIspo: 3-5 days pending improvement
[2017-08-24] MEDS ORDERED: Insulin Detemir 100 Units/ML 3 ML Pen SUBCUT SCH (09:20)
[2017-08-24] MEDS: Enoxaparin 40 MG/0.4 ML Syringe SUBCUT SCH (09:34)
--- NOTE | 2017-08-24 15:14 | PCM.CONSN ---
- General Info Date of Service: 08/24/17 Admission Dx/Problem (Free Text): Admission Diagnosis/Problem Admission Diagnosis/Problem Diabetic foot ulcer Subjective Update: Doing well this afternoon. Having no pain to foot. No chest pain or SOB. No concerns over night. - Review of Systems General: Reports: No Symptoms HEENT: Reports: No Symptoms Pulmonary: Reports: No Symptoms Cardiovascular: Reports: No Symptoms Gastrointestinal: Reports: No Symptoms Genitourinary: Reports: No Symptoms Musculoskeletal: Reports: No Symptoms Skin: Reports: No Symptoms Neurological: Reports: No Symptoms Psychiatric: Reports: No Symptoms - Patient Data Vitals - Most Recent: Last Vital Signs Temp 35.9 C 08/24/17 12:00 Pulse 71 08/24/17 12:00 Resp 20 08/24/17 12:00 BP 168/80 H 08/24/17 12:00 Pulse Ox 95 08/24/17 12:00 Weight - Most Recent: 122.515 kg I&O - Last 24 Hours: Intake & Output 08/24/17 08/24/17 08/24/17 06:59 14:59 22:59 Intake Total 1000 100 Output Total 1650 Balance -650 100 Lab Results Last 24 Hours: Laboratory Results - last 24 hr 08/23/17 08/23/17 08/23/17 Range/Units 16:30 16:46 21:14 WBC (4.0-11.0) K/uL RBC (4.50-5.90) M/uL Hgb (13.0-17.0) g/dL Hct (38.0-50.0) % MCV (80.0-98.0) fL MCH (27.0-32.0) pg MCHC (31.0-37.0) g/dL RDW Std Deviation (28.0-62.0) fl RDW Coeff of Analy (11.0-15.0) % Plt Count (150-400) K/uL MPV (7.40-12.00) fL Neut % (Auto) (48.0-80.0) % Lymph % (Auto) (16.0-40.0) % Haakon % (Auto) (0.0-15.0) % Eos % (Auto) (0.0-7.0) % Baso % (Auto) (0.0-1.5) % Neut # (Auto) (1.4-5.7) K/uL Lymph # (Auto) (0.6-2.4) K/uL Haakon # (Auto) (0.0-0.8) K/uL Eos # (Auto) (0.0-0.7) K/uL Baso # (Auto) (0.0-0.1) K/uL Nucleated RBC % /100WBC Nucleated RBCs # K/uL Sodium (136-146) mmol/L Potassium (3.5-5.1) mmol/L Chloride (98-110) mmol/L Carbon Dioxide (21-31) mmol/L BUN (6.0-23.0) mg/dL Creatinine (0.6-1.5) mg/dL Est Cr Clr Drug Dosing mL/min Estimated GFR (MDRD) ml/min Glucose (60-110) mg/dL POC Glucose 199 H 243 H (60-110) mg/dL Calcium (8.8-10.8) mg/dL Vancomycin Trough 17.5 H (5-15) ug/mL 08/24/17 08/24/17 08/24/17 Range/Units 05:45 05:45 07:00 WBC 7.89 (4.0-11.0) K/uL RBC 4.49 L (4.50-5.90) M/uL Hgb 12.2 L (13.0-17.0) g/dL Hct 36.7 L (38.0-50.0) % MCV 81.7 (80.0-98.0) fL MCH 27.2 (27.0-32.0) pg MCHC 33.2 (31.0-37.0) g/dL RDW Std Deviation 38.4 (28.0-62.0) fl RDW Coeff of Analy 13 (11.0-15.0) % Plt Count 208 (150-400) K/uL MPV 9.60 (7.40-12.00) fL Neut % (Auto) 67.9 (48.0-80.0) % Lymph % (Auto) 15.5 L (16.0-40.0) % Haakon % (Auto) 9.3 (0.0-15.0) % Eos % (Auto) 6.7 (0.0-7.0) % Baso % (Auto) 0.6 (0.0-1.5) % Neut # (Auto) 5.4 (1.4-5.7) K/uL Lymph # (Auto) 1.2 (0.6-2.4) K/uL Haakon # (Auto) 0.7 (0.0-0.8) K/uL Eos # (Auto) 0.5 (0.0-0.7) K/uL Baso # (Auto) 0.1 (0.0-0.1) K/uL Nucleated RBC % 0.0 /100WBC Nucleated RBCs # 0 K/uL Sodium 142 (136-146) mmol/L Potassium 3.6 (3.5-5.1) mmol/L Chloride 111 H (98-110) mmol/L Carbon Dioxide 22 (21-31) mmol/L BUN 11 (6.0-23.0) mg/dL Creatinine 1.3 (0.6-1.5) mg/dL Est Cr Clr Drug Dosing 69.99 mL/min Estimated GFR (MDRD) 57.7 ml/min Glucose 178 H (60-110) mg/dL POC Glucose 179 H (60-110) mg/dL Calcium 8.3 L (8.8-10.8) mg/dL Vancomycin Trough (5-15) ug/mL 08/24/17 Range/Units 11:44 WBC (4.0-11.0) K/uL RBC (4.50-5.90) M/uL Hgb (13.0-17.0) g/dL Hct (38.0-50.0) % MCV (80.0-98.0) fL MCH (27.0-32.0) pg MCHC (31.0-37.0) g/dL RDW Std Deviation (28.0-62.0) fl RDW Coeff of Analy (11.0-15.0) % Plt Count (150-400) K/uL MPV (7.40-12.00) fL Neut % (Auto) (48.0-80.0) % Lymph % (Auto) (16.0-40.0) % Haakon % (Auto) (0.0-15.0) % Eos % (Auto) (0.0-7.0) % Baso % (Auto) (0.0-1.5) % Neut # (Auto) (1.4-5.7) K/uL Lymph # (Auto) (0.6-2.4) K/uL Haakon # (Auto) (0.0-0.8) K/uL Eos # (Auto) (0.0-0.7) K/uL Baso # (Auto) (0.0-0.1) K/uL Nucleated RBC % /100WBC Nucleated RBCs # K/uL Sodium (136-146) mmol/L Potassium (3.5-5.1) mmol/L Chloride (98-110) mmol/L Carbon Dioxide (21-31) mmol/L BUN (6.0-23.0) mg/dL Creatinine (0.6-1.5) mg/dL Est Cr Clr Drug Dosing mL/min Estimated GFR (MDRD) ml/min Glucose (60-110) mg/dL POC Glucose 206 H (60-110) mg/dL Calcium (8.8-10.8) mg/dL Vancomycin Trough (5-15) ug/mL Jered Results Last 24 Hours: Microbiology 08/21/17 18:24 Wound Culture - Final Foot, Left Staphylococcus Aureus Streptococcus Agalactiae Grp B 08/21/17 15:45 Aerobic Blood Culture - Preliminary Blood - Venous - Lab Draw NO GROWTH AFTER 2 DAYS Anaerobic Blood Culture - Preliminary NO GROWTH AFTER 2 DAYS 08/21/17 15:35 Aerobic Blood Culture - Preliminary Blood - Venous NO GROWTH AFTER 2 DAYS Anaerobic Blood Culture - Preliminary NO GROWTH AFTER 2 DAYS 08/21/17 18:24 Gram Stain - Final Foot, Left Med Orders - Current: Current Medications Hydrocodone Bitart/Acetaminophen ([place] 325-5 Mg) 1 - 2 tab PO Q4H PRN PRN Reason: Pain Amlodipine Besylate (Norvasc) 10 mg PO DAILY [facility] Last Admin: 08/24/17 08:21 Dose: 10 mg Enoxaparin Sodium (Lovenox) 40 mg SUBCUT Q24H [facility] Last Admin: 08/24/17 09:34 Dose: 40 mg Fentanyl (Sublimaze) 50 mcg IVPUSH .Q5MIN PRN PRN Reason: Pain Piperacillin Sod/Tazobactam (Sod 4.5 gm/ Sodium Chloride) 100 mls @ 100 mls/hr IV Q6H [facility] Last Admin: 08/24/17 14:14 Dose: 100 mls/hr Sodium Chloride (Normal Saline) 1,000 mls @ 100 mls/hr IV ASDIRECTED [facility] Last Admin: 08/23/17 01:25 Dose: 100 mls/hr Vancomycin HCl 2 gm/ Sodium (Chloride) 500 mls @ 250 mls/hr IV Q12H [facility] Last Admin: 08/24/17 04:12 Dose: 250 mls/hr Insulin Aspart (Novolog) 0 unit SUBCUT TIDAC LIANA PRN Reason: Protocol Last Admin: 08/24/17 12:46 Dose: 6 units Insulin Detemir (Levemir) 20 unit SUBCUT BEDTIME LIANA Ondansetron HCl (Zofran) 4 mg IVPUSH Q4H PRN PRN Reason: Nausea Sodium Chloride (Saline Flush) 2.5 ml FLUSH ASDIRECTED PRN PRN Reason: Keep Vein Open Discontinued Medications Bupivacaine HCl (Marcaine 0.5%) Confirm Administered Dose 30 ml .ROUTE .STK-MED ONE Stop: 08/21/17 14:56 Cefazolin Sodium (Ancef) Confirm Administered Dose 1 gm .ROUTE .STK-MED ONE Stop: 08/21/17 14:56 Desflurane (Suprane) Confirm Administered Dose 240 ml .ROUTE .STK-MED ONE Stop: 08/21/17 14:44 Fentanyl (Sublimaze) Confirm Administered Dose 250 mcg .ROUTE .STK-MED ONE Stop: 08/21/17 14:49 Vancomycin HCl 2 gm/ Sodium (Chloride) 500 mls @ 250 mls/hr IV Q12H [facility] Last Admin: 08/21/17 17:17 Dose: Not Given Insulin Aspart (Novolog) 0 unit SUBCUT TIDAC [facility] PRN Reason: Protocol Insulin Aspart (Novolog) 3 unit SUBCUT NOW [facility] Stop: 08/21/17 16:15 Last Admin: 08/21/17 17:08 Dose: 3 unit Insulin Detemir (Levemir) 15 unit SUBCUT BEDTIME [facility] Last Admin: 08/21/17 21:03 Dose: 15 units Insulin Detemir (Levemir) 18 unit SUBCUT BEDTIME [facility] Last Admin: 08/23/17 21:34 Dose: 18 units Lidocaine (Xylocaine-Mpf 2%) Confirm Administered Dose 5 ml .ROUTE .STK-MED ONE Stop: 08/21/17 14:49 Lidocaine HCl (Xylocaine 1%) Confirm Administered Dose 20 ml .ROUTE .STK-MED ONE Stop: 08/21/17 14:56 Midazolam HCl (Versed 1 Mg/Ml) Confirm Administered Dose 2 mg .ROUTE .STK-MED ONE Stop: 08/21/17 14:49 Ondansetron HCl (Zofran) Confirm Administered Dose 4 mg .ROUTE .STK-MED ONE Stop: 08/21/17 14:49 Phenylephrine HCl (Phenylephrine In Ns 100 Mcg/Ml) Confirm Administered Dose 1 mg .ROUTE .STK-MED ONE Stop: 08/21/17 18:17 Propofol (Diprivan 20 Ml) Confirm Administered Dose 200 mg .ROUTE .STK-MED ONE Stop: 08/21/17 14:49 Vancomycin HCl (Pharmacy To Dose - Vancomycin) 1 dose .XX ONETIME ONE Stop: 08/21/17 14:19 Last Admin: 08/21/17 17:18 Dose: Not Given - Exam General: Alert, Oriented, Cooperative HEENT: Pupils Equal, Pupils Reactive Peripheral Pulses: 0: Posterior Tibial (L), Posterior Tibial (R), 2+: Dorsalis Pedis (L), Dorsalis Pedis (R) Skin: Warm Wound/Incisions: Healing Well, Drainage (today is first day that I do not see purulence upon exanguination), Erythema (continues to slowly decrease), Erythema Improving Physical Findings Comments:: Left foot diabetic ulcer: Edema continues to reduce and is now minimal. Erythema continues to reduce. Moderate drainage continues but now without purulence. No malodor noted. Consult PN Assessment/Plan POD#: 3 Procedures: status post I&D sub fascial level left foot (1) Diabetic foot ulcer SNOMED Code(s): 218043735 Code(s): E11.621 - TYPE 2 DIABETES MELLITUS WITH FOOT ULCER; L97.509 - NON- PRESSURE CHRONIC ULCER OTH PRT UNSP FOOT W UNSP SEVERITY Current Visit: Yes Qualifiers: Diabetic foot ulcer location: midfoot Diabetes mellitus type: type 2 Laterality: left Non-pressure ulcer stage: with bone involvement without evidence of necrosis Qualified Code(s): E11.621 - Type 2 diabetes mellitus with foot ulcer; L97.426 - Non-pressure chronic ulcer of left heel and midfoot with bone involvement without evidence of necrosis; L97.426 - 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 There was strikethrough to outer bandage but not to JOSESITO bandage. Cellulitis and edema continue to improve. Ulcerated area flushed today with manual pulse lavage using 60 cc syringe twice containing normal sterile saline with small amount of betadine mixed in. I exsanguinated the area manually and repeatedly and for first time there is no purulence noted. Culture taken again today. Ulcer packed with betadine/saline soaked iodofore quarter inch packing, and padded with fluff gauze, secured by kerlix roll and josesito bandage. Plan is to maintiain IV antibiotics. Patient blood sugar remains a concern. Now that purulence has abated I no longer plan a return to the OR. I will discuss discharge to be done within the next 3 days and will continue to follow.
[2017-08-25] MEDS: Piperacillin/Tazobactam 4.5 GM in Sodium Chloride 0.9% 100 ML IV SCH ×3 (02:32→13:44)
[2017-08-25] MEDS: Vancomycin 2 GM in Sodium Chloride 0.9% 500 ML IV SCH (04:00)
[2017-08-25] MEDS: Insulin Aspart 100 Units/ML 3 ML Pen SUBCUT SCH ×2 (07:19→12:07)
[2017-08-25] MEDS: amLODIPine 5 MG Tab PO SCH (08:02)
[2017-08-25] MEDS: Enoxaparin 40 MG/0.4 ML Syringe SUBCUT SCH (10:01)
--- NOTE | 2017-08-25 11:13 | PCM.DCSUM1 ---
Discharge Summary - Hospital Course Brief History: This 52 year old male with pmh of uncontrolled DM, L diabetic foot ulcer, HTN and SOB on exertion was admitted directly from Dr. Gutierrez's clinic. He was recently admitted in [facility] for this ulcer, with fevers. He reports 8 months ago a blood blister wsa noted on the plantar surface of his l foot, this popped and healed slightly but never went away. He didn't seek treatment. 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 The blister popped and then the next day he noticed increased swelling, pain and fevers at home. He reports his normal blood sugars at 250-300s, he checks them maybe once a week. He has been diabetic for many years, started as diet controlled and has progressively needed more medication help and was recently started on Insulin from [facility] in [place]. He reports diet doesn't follow ADA standard. He has no hx of TN or stenting. No COPD or asthma. He does report some SOB with exertion such as walking up stairs. Leukocytosis noted, 11,760 on admission. BMP WNL except for glucose 267 and A1c 11.1. CXR negative for infiltrates and no cardiomegaly noted. EKG SR with no ectopy or ST segment changes. - Discharge Data Discharge Date: 08/25/17 Discharge Disposition: Home, Self-Care 01 Condition: Good - Discharge Diagnosis/Problem(s) (1) Diabetic foot ulcer SNOMED Code(s): 600501790 ICD Code: E11.621 - TYPE 2 DIABETES MELLITUS WITH FOOT ULCER; L97.509 - NON- PRESSURE CHRONIC ULCER OTH PRT UNSP FOOT W UNSP SEVERITY Status: Acute Current Visit: Yes Qualifiers: Diabetic foot ulcer location: midfoot Diabetes mellitus type: type 2 Laterality: left Non-pressure ulcer stage: with bone involvement without evidence of necrosis Qualified Code(s): E11.621 - Type 2 diabetes mellitus with foot ulcer; L97.426 - Non-pressure chronic ulcer of left heel and midfoot with bone involvement without evidence of necrosis; L97.426 - Non-pressure chronic ulcer of left heel and midfoot with bone involvement without evidence of necrosis (2) Uncontrolled type 2 diabetes mellitus with skin complication SNOMED Code(s): 43787853 ICD Code: E11.628 - TYPE 2 DIABETES MELLITUS WITH OTHER SKIN COMPLICATIONS; E11.65 - TYPE 2 DIABETES MELLITUS WITH HYPERGLYCEMIA Status: Acute Current Visit: Yes Qualifiers: Diabetes mellitus complication detail: with foot ulcer Diabetes mellitus nursing home insulin use: with nursing home use Qualified Code(s): E11.621 - Type 2 diabetes mellitus with foot ulcer; E11.65 - Type 2 diabetes mellitus with hyperglycemia; Z79.4 - termite treater helper (current) use of insulin; Z79.4 - [facility] ( current) use of insulin; Z79.4 - termite treater helper (current) use of insulin; E11.65 - Type 2 diabetes mellitus with hyperglycemia; E11.65 - Type 2 diabetes mellitus with hyperglycemia; E11.65 - Type 2 diabetes mellitus with hyperglycemia; L97.509 - Non-pressure chronic ulcer of other part of unspecified foot with unspecified severity; L97.509 - Non-pressure chronic ulcer of other part of unspecified foot with unspecified severity; L97.509 - Non-pressure chronic ulcer of other part of unspecified foot with unspecified severity; L97.509 - Non -pressure chronic ulcer of other part of unspecified foot with unspecified severity; Z79.4 - termite treater helper (current) use of insulin (3) HTN (hypertension) SNOMED Code(s): 62483991 ICD Code: I10 - ESSENTIAL (PRIMARY) HYPERTENSION Status: Chronic Current Visit: Yes Qualifiers: Hypertension type: essential hypertension Qualified Code(s): I10 - Essential (primary) hypertension (4) Obesity (BMI 30-39.9) SNOMED Code(s): 593000820 ICD Code: E66.9 - OBESITY, UNSPECIFIED Status: Chronic Current Visit: Yes (5) Peripheral neuropathy SNOMED Code(s): 881649984 ICD Code: G62.9 - POLYNEUROPATHY, UNSPECIFIED Status: Chronic Current Visit: Yes - Patient Summary/Data Operative Procedure(s) Performed: incision and drainage with debridement left foot diabetic ulcer Consults: Consultations 08/21/17 14:13 Consult to Physician [CONS] Routine 08/22/17 08:04 Consult to [employer] Trimming Machine Operator [Consult to Diabetic Nurse Specialist] [CONS] Routine 08/22/17 10:29 Consult to Physical Therapy [PT Evaluation and Treatment] [CONS] Routine - Patient Instructions Diet: Diabetic Diet Activity: Non Weight Bearing (To left foot.) Driving: Do Not Drive Showering/Bathing: May Shower (Do no get foot wet. Cover or leave out of water) Wound/Incision Care: Keep Operative Site/Wound Site Clean and Dry, Change Dressing Daily Notify Provider of: Fever, Increased Pain, Swelling and Redness, Drainage, Nausea and/or Vomiting - Discharge Plan Prescriptions/Med Rec: Insulin Aspart [NovoLOG] See Protocol SUBCUT TIDAC #1 box Insulin Detemir [Levemir] 20 unit SUBCUT BEDTIME #1 box Levofloxacin [Levaquin] 750 mg PO DAILY #10 tablet Home Medications: Home Meds amLODIPine [Norvasc] 10 mg PO DAILY 08/21/17 [History] metFORMIN [Glucophage XR] 1,000 mg PO BIDMEALS 08/21/17 [History] Insulin Aspart [NovoLOG] See Protocol SUBCUT TIDAC #1 box 08/25/17 [Rx] Insulin Detemir [Levemir] 20 unit SUBCUT BEDTIME #1 box 08/25/17 [Rx] Levofloxacin [Levaquin] 750 mg PO DAILY #10 tablet 08/25/17 [Rx] Patient Handouts: Insulin Aspart; Insulin Aspart Protamine injection, Insulin Detemir injection, Levofloxacin tablets Referrals: Aliza Aguilar MD [Physician] - 09/03/17 3:15 pm Wilmer Gutierrez DPM [Physician] - 08/26/17 5:00 pm - Discharge Summary/Plan Comment DC Time >30 min.: No Discharge Summary/Plan Comment: Discharge Diagnoses Diabetic foot ulcer, Left Cellulitis DM type 2, uncontrolled obesity HTN Eligio was admitted and treated for DM L foot ulcer with surrounding cellulitis with Vancomycin and Zosyn. Dr Gutierrez was consulted and took him to the OR and completed an I&D please see his noted. Today Leukocytosis has improved. BC negative. Wound culture returned with Group b strep and staph aureus, NOT MRSA. Patient dressing is changed daily and will need to be changed daily at home. He will be discharge today with Levaquin 750 mg daily in consultation with Dr. Gutierrez. He will see patient tomorrow in his clinic. Regarding DM control. DM educator is working with him to help with diet and new insulin prescriptions. He will be sent home with Novolog SSI with each meal and Levemir 20 units at bedtime, this has been increased from 15 units on admission. He was highly encouraged to keep diet well controlled and to take Metformin and Insulins. If BS get out of control, his infection may get worse and he is at high rish or recurrently infections poor healing and amputation. Will arrange follow up with PCP here in [place] along with Dr. Gutierrez tomorrow. He will also follow with global president. He was also inquiring [place] He was directed to Dr. Gutierrez for the answer. He is to be non-weight bearing until further notice. He will be sent home with knee walker/scooter to aid in ambulation. He is to return to ED or clinic if concerns should arise. - General Info Date of Service: 08/25/17 Admission Dx/Problem (Free Text: Admission Diagnosis/Problem Admission Diagnosis/Problem Diabetic foot ulcer Subjective Update: Doing well today. no chest pain or SOB. No foot pain. Asking if he is able to go home today. Functional Status: Reports: Pain Controlled, Tolerating Diet, Ambulating, Urinating - Review of Systems Pulmonary: Reports: No Symptoms. Denies: Shortness of Breath Cardiovascular: Reports: No Symptoms. Denies: Chest Pain Gastrointestinal: Reports: No Symptoms. Denies: Abdominal Pain, Nausea, Vomiting Genitourinary: Reports: No Symptoms. Denies: Dysuria, Frequency, Burning Neurological: Reports: No Symptoms. Denies: Confusion Psychiatric: Reports: No Symptoms. Denies: Confusion - Patient Data Vitals - Most Recent: Last Vital Signs Temp 96.9 F 08/25/17 08:00 Pulse 89 08/25/17 08:00 Resp 20 08/25/17 08:00 BP 183/83 H 08/25/17 08:02 Pulse Ox 97 08/25/17 08:00 Weight - Most Recent: 122.515 kg I&O - Last 24 hours: Intake & Output 08/24/17 08/25/17 08/25/17 22:59 06:59 14:59 Intake Total 2068 2100 Output Total 700 2880 Balance 1368 -780 Lab Results - Last 24 hrs: Laboratory Results - last 24 hr 08/24/17 08/24/17 08/24/17 Range/Units 11:44 16:45 20:21 WBC (4.0-11.0) K/uL RBC (4.50-5.90) M/uL Hgb (13.0-17.0) g/dL Hct (38.0-50.0) % MCV (80.0-98.0) fL MCH (27.0-32.0) pg MCHC (31.0-37.0) g/dL RDW Std Deviation (28.0-62.0) fl RDW Coeff of Analy (11.0-15.0) % Plt Count (150-400) K/uL MPV (7.40-12.00) fL Neut % (Auto) (48.0-80.0) % Lymph % (Auto) (16.0-40.0) % [place] % (Auto) (0.0-15.0) % Eos % (Auto) (0.0-7.0) % Baso % (Auto) (0.0-1.5) % Neut # (Auto) (1.4-5.7) K/uL Lymph # (Auto) (0.6-2.4) K/uL Madison # (Auto) (0.0-0.8) K/uL Eos # (Auto) (0.0-0.7) K/uL Baso # (Auto) (0.0-0.1) K/uL Nucleated RBC % /100WBC Nucleated RBCs # K/uL Sodium (136-146) mmol/L Potassium (3.5-5.1) mmol/L Chloride (98-110) mmol/L Carbon Dioxide (21-31) mmol/L BUN (6.0-23.0) mg/dL Creatinine (0.6-1.5) mg/dL Est Cr Clr Drug Dosing mL/min Estimated GFR (MDRD) ml/min Glucose (60-110) mg/dL POC Glucose 206 H 199 H 168 H (60-110) mg/dL Calcium (8.8-10.8) mg/dL 08/25/17 08/25/17 08/25/17 Range/Units 05:50 05:50 06:27 WBC 8.04 (4.0-11.0) K/uL RBC 4.51 (4.50-5.90) M/uL Hgb 12.4 L (13.0-17.0) g/dL Hct 36.6 L (38.0-50.0) % MCV 81.2 (80.0-98.0) fL MCH 27.5 (27.0-32.0) pg MCHC 33.9 (31.0-37.0) g/dL RDW Std Deviation 38.2 (28.0-62.0) fl RDW Coeff of Analy 13 (11.0-15.0) % Plt Count 205 (150-400) K/uL MPV 9.50 (7.40-12.00) fL Neut % (Auto) 68.6 (48.0-80.0) % Lymph % (Auto) 12.3 L (16.0-40.0) % Madison % (Auto) 11.4 (0.0-15.0) % Eos % (Auto) 7.1 H (0.0-7.0) % Baso % (Auto) 0.6 (0.0-1.5) % Neut # (Auto) 5.5 (1.4-5.7) K/uL Lymph # (Auto) 1.0 (0.6-2.4) K/uL Madison # (Auto) 0.9 H (0.0-0.8) K/uL Eos # (Auto) 0.6 (0.0-0.7) K/uL Baso # (Auto) 0.1 (0.0-0.1) K/uL Nucleated RBC % 0.0 /100WBC Nucleated RBCs # 0 K/uL Sodium 138 (136-146) mmol/L Potassium 3.7 (3.5-5.1) mmol/L Chloride 109 (98-110) mmol/L Carbon Dioxide 21 (21-31) mmol/L BUN 11 (6.0-23.0) mg/dL Creatinine 1.4 (0.6-1.5) mg/dL Est Cr Clr Drug Dosing 64.99 mL/min Estimated GFR (MDRD) 53.0 ml/min Glucose 224 H (60-110) mg/dL POC Glucose 195 H (60-110) mg/dL Calcium 8.5 L (8.8-10.8) mg/dL [facility] Results - Last 24 hrs: Microbiology 08/21/17 15:45 Aerobic Blood Culture - Preliminary Blood - Venous - Lab Draw NO GROWTH AFTER 3 DAYS Anaerobic Blood Culture - Preliminary NO GROWTH AFTER 3 DAYS 08/21/17 15:35 Aerobic Blood Culture - Preliminary Blood - Venous NO GROWTH AFTER 3 DAYS Anaerobic Blood Culture - Preliminary NO GROWTH AFTER 3 DAYS 08/21/17 18:24 Wound Culture - Final Foot, Left Staphylococcus Aureus Streptococcus Agalactiae Grp B Med Orders - Current: Current Medications Hydrocodone Bitart/Acetaminophen (Hope 325-5 Mg) 1 - 2 tab PO Q4H PRN PRN Reason: Pain Amlodipine Besylate (Norvasc) 10 mg PO DAILY [facility] Last Admin: 08/25/17 08:02 Dose: 10 mg Enoxaparin Sodium (Lovenox) 40 mg SUBCUT Q24H [facility] Last Admin: 08/25/17 10:01 Dose: 40 mg Fentanyl (Sublimaze) 50 mcg IVPUSH .Q5MIN PRN PRN Reason: Pain Piperacillin Sod/Tazobactam (Sod 4.5 gm/ Sodium Chloride) 100 mls @ 100 mls/hr IV Q6H [facility] Last Admin: 08/25/17 08:02 Dose: 100 mls/hr Vancomycin HCl 2 gm/ Sodium (Chloride) 500 mls @ 250 mls/hr IV Q12H [facility] Last Admin: 08/25/17 04:00 Dose: 250 mls/hr Insulin Aspart (Novolog) 0 unit SUBCUT TIDAC [facility] PRN Reason: Protocol Last Admin: 08/25/17 07:19 Dose: 3 units Insulin Detemir (Levemir) 20 unit SUBCUT BEDTIME [facility] Last Admin: 08/24/17 20:23 Dose: 20 unit Ondansetron HCl (Zofran) 4 mg IVPUSH Q4H PRN PRN Reason: Nausea Sodium Chloride (Saline Flush) 2.5 ml FLUSH ASDIRECTED PRN PRN Reason: Keep Vein Open Discontinued Medications Bupivacaine HCl (Marcaine 0.5%) Confirm Administered Dose 30 ml .ROUTE .STK-MED ONE Stop: 08/21/17 14:56 Cefazolin Sodium (Ancef) Confirm Administered Dose 1 gm .ROUTE .STK-MED ONE Stop: 08/21/17 14:56 Desflurane (Suprane) Confirm Administered Dose 240 ml .ROUTE .STK-MED ONE Stop: 08/21/17 14:44 Fentanyl (Sublimaze) Confirm Administered Dose 250 mcg .ROUTE .STK-MED ONE Stop: 08/21/17 14:49 Vancomycin HCl 2 gm/ Sodium (Chloride) 500 mls @ 250 mls/hr IV Q12H [facility] Last Admin: 08/21/17 17:17 Dose: Not Given Sodium Chloride (Normal Saline) 1,000 mls @ 100 mls/hr IV ASDIRECTED [facility] Last Admin: 08/23/17 01:25 Dose: 100 mls/hr Insulin Aspart (Novolog) 0 unit SUBCUT TIDAC [facility] PRN Reason: Protocol Insulin Aspart (Novolog) 3 unit SUBCUT NOW STA Stop: 08/21/17 16:15 Last Admin: 08/21/17 17:08 Dose: 3 unit Insulin Detemir (Levemir) 15 unit SUBCUT BEDTIME [facility] Last Admin: 08/21/17 21:03 Dose: 15 units Insulin Detemir (Levemir) 18 unit SUBCUT BEDTIME [facility] Last Admin: 08/23/17 21:34 Dose: 18 units Lidocaine (Xylocaine-Mpf 2%) Confirm Administered Dose 5 ml .ROUTE .STK-MED ONE Stop: 08/21/17 14:49 Lidocaine HCl (Xylocaine 1%) Confirm Administered Dose 20 ml .ROUTE .STK-MED ONE Stop: 08/21/17 14:56 Midazolam HCl (Versed 1 Mg/Ml) Confirm Administered Dose 2 mg .ROUTE .STK-MED ONE Stop: 08/21/17 14:49 Ondansetron HCl (Zofran) Confirm Administered Dose 4 mg .ROUTE .STK-MED ONE Stop: 08/21/17 14:49 Phenylephrine HCl (Phenylephrine In Ns 100 Mcg/Ml) Confirm Administered Dose 1 mg .ROUTE .STK-MED ONE Stop: 08/21/17 18:17 Propofol (Diprivan 20 Ml) Confirm Administered Dose 200 mg .ROUTE .STK-MED ONE Stop: 08/21/17 14:49 Vancomycin HCl (Pharmacy To Dose - Vancomycin) 1 dose .XX ONETIME ONE Stop: 08/21/17 14:19 Last Admin: 08/21/17 17:18 Dose: Not Given - Exam General: Reports: Alert, Oriented. Denies: Cooperative, No Acute Distress Lungs: Reports: Clear to Auscultation, Normal Respiratory Effort Cardiovascular: Reports: Regular Rate, Regular Rhythm GI/Abdominal Exam: Normal Bowel Sounds, Soft, Non-Tender, No Organomegaly, No Distention, No Abnormal Bruit, No Mass, Pelvis Stable Wound/Incisions: Reports: Dressing Dry and Intact, Drainage (Scant serous, L foot.), Erythema Improving Neurological: Reports: No New Focal Deficit Psy/Mental Status: Reports: Alert, Normal Affect, Normal Mood *Q Meaningful Use (DIS) - VTE *Q VTE Criteria *Q: - Stroke *Q Stroke Criteria *Q: - AMI *Q AMI Criteria *Q:
== END 2017-08-25 14:35 | disposition home or self-care (01) | DRG 982 ==
LOC: MW.MS 14:10
PROVIDERS: ADMIT Internal Medicine; ATTEND Internal Medicine
PROC: 0J9R0ZZ Drainage of Left Foot Subcutaneous Tissue and Fascia, Open Approach (ICD-10-PCS; principal; 2017-08-21)
PROC: 0JDR0ZZ Extraction of Left Foot Subcutaneous Tissue and Fascia, Open Approach (ICD-10-PCS; 2017-08-21)
DX: E11.621 Type 2 diabetes mellitus with foot ulcer (principal); L97.426 Non-pressure chronic ulcer of left heel and midfoot with bone involvement without evidence of necrosis; L03.116 Cellulitis of left lower limb; M86.9 Osteomyelitis, unspecified; E11.65 Type 2 diabetes mellitus with hyperglycemia; G62.9 Polyneuropathy, unspecified; R06.02 Shortness of breath; D72.829 Elevated white blood cell count, unspecified; E11.69 Type 2 diabetes mellitus with other specified complication; B95.61 Methicillin susceptible Staphylococcus aureus infection as the cause of diseases classified elsewhere; B95.1 Streptococcus, group B, as the cause of diseases classified elsewhere; I10 Essential (primary) hypertension; E66.9 Obesity, unspecified; Z68.30 Body mass index [BMI] 30.0-30.9, adult; Z79.4 Long term (current) use of insulin; Z79.899 Other long term (current) drug therapy
CPT/HCPCS: 00400; 36415; 71010; 71010-26; 80048; 80053; 80202; 82962; 83036; 85025; 85610; 87040; 87070; 87075; 87077; 87186; 87205; 93005; 97530-GP; A9270-GY; J0690; J1650; J1815-GY ×2; J2250; J2405; J2543; J2704; J3010; J3370; J7030; J7040